=== PATIENT | male | born 1945 ===

== ENCOUNTER 2020-03-31 09:14 | Outpatient (REF) | payer MEDICARE, BC, SELFPAY ==
[2020-03-31 09:50] LABS: MANUAL DIFF FLAG NO
[2020-03-31 09:52] LABS: Basophils Absolute Auto 0.1 X10*3/uL (0.0-0.2); Basophils Percent Auto 0.9 % (0-2); Eosinophils Absolute Auto 0.2 X10*3/uL (0.0-0.4); Eosinophils Percent Auto 2.6 % (0-4); Hemoglobin 15.4 g/dl (14.0-18.0); Imm Gran Abs Auto 0.02 X10*3/uL (0.00-0.03); Imm Gran Pct Auto 0.3 % (0.0-0.4); Lymphocytes Absolute Auto 1.2 X10*3/uL (1.2-4.9); Lymphocytes Percent Auto 18.9 % (20-40); Mean Corpuscular HGB Conc 34.2 g/dl (31.0-36.0); Mean Corpuscular Hemoglobin 30.9 pg (27.0-33.0); Mean Corpuscular Volume 90.2 fL (80-98); Mean Platelet Volume 9.3 fL (9.4-12.4); Monocytes Absolute Auto 0.6 X10*3/uL (0.1-1.2); Monocytes Percent Auto 8.5 % (2-11); Neutrophils Absolute Auto 4.4 X10*3/uL (2.0-8.3); Neutrophils Percent Auto 68.8 % (45-73); Platelet Count 164 X10*3/uL (160-400); Red Blood Count 4.99 X10*6/uL (4.60-5.80); Red Cell Distribution Width 12.5 % (11.0-16.0); White Blood Count 6.5 X10*3/uL (4.8-10.8)
[2020-03-31 10:40] LABS: Alanine Aminotransferase 25 U/L (0-40); Albumin Level 4.5 g/dL (3.5-5.0); Alkaline Phosphatase 38 U/L (39-117); Anion Gap 15 (12-20); Aspartate Amino Transferase 24 U/L (5-37); Bilirubin Total 0.8 mg/dL (0.0-1.0); Blood Urea Nitrogen 19 mg/dL (9-16); Calcium 9.2 mg/dL (8.4-10.2); Carbon Dioxide 27 mmol/L (22-29); Chloride 104 mmol/L (96-108); Cholesterol 181 mg/dL; Estimated Glomerular Filt Rate > 60; Glucose Fasting 101 mg/dL (60-99); HDL Cholesterol 58 mg/dL; LDL Cholesterol Calculated 108 mg/dl; Potassium 4.5 mmol/l (3.3-5.1); Sodium 141 mmol/L (135-145); Total Protein 6.7 g/dL (6.5-8.0); Triglycerides 77 mg/dL
== END 2020-03-31 09:15 | disposition home or self-care (01) ==
LOC: HO.LAB 09:14
PROVIDERS: PCP Internal Medicine Medical Oncology; Visit Provider Internal Medicine Medical Oncology
DX: E78.5 Hyperlipidemia, unspecified (principal)
CPT/HCPCS: 36415; 80053; 80061; 85025

== ENCOUNTER 2020-06-25 09:18 | Outpatient (REF) | payer MEDICARE, BC, SELFPAY ==
[2020-06-25 10:17] LABS: MANUAL DIFF FLAG NO
[2020-06-25 10:29] LABS: Basophils Percent Auto 0.7 % (0-2); Eosinophils Absolute Auto 0.2 X10*3/uL (0.0-0.4); Eosinophils Percent Auto 2.6 % (0-4); Hematocrit 42.4 % (42-52); Hemoglobin 14.6 g/dl (14.0-18.0); Imm Gran Abs Auto 0.01 X10*3/uL (0.00-0.03); Imm Gran Pct Auto 0.2 % (0.0-0.4); Lymphocytes Absolute Auto 1.1 X10*3/uL (1.2-4.9); Lymphocytes Percent Auto 18.1 % (20-40); Mean Corpuscular HGB Conc 34.4 g/dl (31.0-36.0); Mean Corpuscular Hemoglobin 30.7 pg (27.0-33.0); Mean Corpuscular Volume 89.1 fL (80-98); Mean Platelet Volume 9.6 fL (9.4-12.4); Monocytes Absolute Auto 0.6 X10*3/uL (0.1-1.2); Monocytes Percent Auto 10.4 % (2-11); Platelet Count 148 X10*3/uL (160-400); Red Blood Count 4.76 X10*6/uL (4.60-5.80); Red Cell Distribution Width 12.6 % (11.0-16.0); White Blood Count 5.9 X10*3/uL (4.8-10.8)
[2020-06-25 11:00] LABS: Alanine Aminotransferase 27 U/L (0-40); Albumin Level 4.5 g/dL (3.5-5.0); Alkaline Phosphatase 36 U/L (39-117); Anion Gap 12 (12-20); Aspartate Amino Transferase 23 U/L (5-37); Bilirubin Total 1.1 mg/dL (0.0-1.0); Blood Urea Nitrogen 20 mg/dL (9-16); Calcium 9.1 mg/dL (8.4-10.2); Carbon Dioxide 27 mmol/L (22-29); Chloride 104 mmol/L (96-108); Cholesterol 161 mg/dL; Estimated Glomerular Filt Rate > 60; Glucose Random 106 mg/dL (60-115); HDL Cholesterol 52 mg/dL; LDL Cholesterol Calculated 95 mg/dl; Potassium 4.3 mmol/L (3.3-5.1); Sodium 139 mmol/L (135-145); Total Protein 6.4 g/dL (6.5-8.0); Triglycerides 70 mg/dL
[2020-06-25 11:12] LABS: Prostate Specific Antigen 1.17 ng/mL (<0.05-4.0)
== END 2020-06-25 09:19 | disposition home or self-care (01) ==
LOC: HO.LAB 09:18
PROVIDERS: PCP Internal Medicine Medical Oncology; Visit Provider Internal Medicine Medical Oncology
DX: Z12.5 Encounter for screening for malignant neoplasm of prostate (principal); E78.5 Hyperlipidemia, unspecified; I10 Essential (primary) hypertension
CPT/HCPCS: 36415; 80053; 80061; 84153; 85025

== ENCOUNTER 2020-10-13 08:27 | Outpatient (REF) | payer MEDICARE, BC, SELFPAY ==
[2020-10-13 09:44] LABS: MANUAL DIFF FLAG NO
[2020-10-13 09:56] LABS: Basophils Absolute Auto 0.1 X10*3/uL (0.0-0.2); Basophils Percent Auto 0.7 % (0-2); Eosinophils Absolute Auto 0.2 X10*3/uL (0.0-0.4); Eosinophils Percent Auto 3.1 % (0-4); Hematocrit 43.9 % (42-52); Imm Gran Abs Auto 0.02 X10*3/uL (0.00-0.03); Imm Gran Pct Auto 0.3 % (0.0-0.4); Lymphocytes Absolute Auto 1.1 X10*3/uL (1.2-4.9); Lymphocytes Percent Auto 16.5 % (20-40); Mean Corpuscular HGB Conc 34.2 g/dl (31.0-36.0); Mean Corpuscular Hemoglobin 30.7 pg (27.0-33.0); Mean Corpuscular Volume 89.8 fL (80-98); Mean Platelet Volume 9.4 fL (9.4-12.4); Monocytes Absolute Auto 0.7 X10*3/uL (0.1-1.2); Monocytes Percent Auto 9.6 % (2-11); Neutrophils Absolute Auto 4.8 X10*3/uL (2.0-8.3); Neutrophils Percent Auto 69.8 % (45-73); Platelet Count 161 X10*3/uL (160-400); Red Blood Count 4.89 X10*6/uL (4.60-5.80); Red Cell Distribution Width 13.1 % (11.0-16.0); White Blood Count 6.9 X10*3/uL (4.8-10.8)
[2020-10-13 10:20] LABS: Alanine Aminotransferase 23 U/L (0-40); Albumin Level 4.3 g/dL (3.5-5.0); Alkaline Phosphatase 35 U/L (39-117); Anion Gap 13 (12-20); Aspartate Amino Transferase 20 U/L (5-37); Bilirubin Total 0.5 mg/dL (0.0-1.0); Blood Urea Nitrogen 15 mg/dL (9-16); Calcium 9.4 mg/dL (8.4-10.2); Carbon Dioxide 27 mmol/L (22-29); Chloride 104 mmol/L (96-108); Cholesterol 170 mg/dL; Estimated Glomerular Filt Rate > 60; Glucose Random 95 mg/dL (60-115); HDL Cholesterol 53 mg/dL; LDL Cholesterol Calculated 95 mg/dl; Potassium 4.4 mmol/L (3.3-5.1); Sodium 140 mmol/L (135-145); Total Protein 6.4 g/dL (6.5-8.0); Triglycerides 112 mg/dL
[2020-10-13 10:25] LABS: Prostate Specific Antigen 1.37 ng/mL (<0.05-4.0)
[2020-10-13 10:39] LABS: Folate > 20.0 ng/mL (> or = 4.0); Vitamin B12 410 pg/mL (200-900)
== END 2020-10-13 08:28 | disposition home or self-care (01) ==
LOC: HO.LAB 08:27
PROVIDERS: PCP Internal Medicine Medical Oncology; Visit Provider Internal Medicine Medical Oncology
DX: Z12.5 Encounter for screening for malignant neoplasm of prostate (principal); I10 Essential (primary) hypertension; E78.2 Mixed hyperlipidemia; D53.9 Nutritional anemia, unspecified; N40.0 Benign prostatic hyperplasia without lower urinary tract symptoms
CPT/HCPCS: 36415; 80053; 80061; 82607; 82746; 84153; 85025

== ENCOUNTER 2021-02-16 10:01 | Outpatient (REF) | payer MEDICARE, BC, SELFPAY ==
[2021-02-16 10:16] LABS: MANUAL DIFF FLAG NO
[2021-02-16 10:36] LABS: Basophils Percent Auto 0.6 % (0-2); Eosinophils Absolute Auto 0.2 X10*3/uL (0.0-0.4); Eosinophils Percent Auto 2.7 % (0-4); Hematocrit 44.8 % (42.0-52.0); Hemoglobin 15.5 g/dl (14.0-18.0); Imm Gran Abs Auto 0.02 X10*3/uL (0.00-0.03); Imm Gran Pct Auto 0.3 % (0.0-0.4); Lymphocytes Absolute Auto 1.2 X10*3/uL (1.2-4.9); Lymphocytes Percent Auto 17.1 % (20-40); Mean Corpuscular HGB Conc 34.6 g/dl (31.0-36.0); Mean Corpuscular Hemoglobin 30.6 pg (27.0-33.0); Mean Corpuscular Volume 88.5 fL (80.0-98.0); Mean Platelet Volume 8.9 fL (9.4-12.4); Monocytes Absolute Auto 0.6 X10*3/uL (0.1-1.2); Monocytes Percent Auto 8.7 % (2-11); Neutrophils Absolute Auto 4.9 x10*3/uL (2.0-8.3); Neutrophils Percent Auto 70.6 % (45-73); Platelet Count 165 X10*3/uL (160-400); Red Blood Count 5.06 X10*6/uL (4.60-5.80); Red Cell Distribution Width 12.7 % (11.0-16.0); White Blood Count 6.9 X10*3/uL (4.8-10.8)
[2021-02-16 11:01] LABS: Alanine Aminotransferase 34 U/L (0-40); Albumin Level 4.6 g/dL (3.5-5.0); Alkaline Phosphatase 34 U/L (39-117); Anion Gap 13 (12-20); Aspartate Amino Transferase 26 U/L (5-37); Bilirubin Total 0.8 mg/dL (0.0-1.0); Blood Urea Nitrogen 18 mg/dL (9-16); Calcium 9.5 mg/dL (8.4-10.2); Carbon Dioxide 26 mmol/L (22-29); Chloride 105 mmol/L (96-108); Cholesterol 185 mg/dL; Estimated Glomerular Filt Rate > 60; Glucose Fasting 106 mg/dL (60-99); HDL Cholesterol 59 mg/dL; LDL Cholesterol Calculated 103 mg/dl; Potassium 4.4 mmol/L (3.3-5.1); Sodium 140 mmol/L (135-145); Total Protein 6.9 g/dL (6.5-8.0); Triglycerides 118 mg/dL
== END 2021-02-16 10:02 | disposition home or self-care (01) ==
LOC: HO.LAB 10:01
PROVIDERS: PCP Internal Medicine Medical Oncology; Visit Provider Internal Medicine Medical Oncology
DX: Z00.00 Encounter for general adult medical examination without abnormal findings (principal); E78.2 Mixed hyperlipidemia; N40.0 Benign prostatic hyperplasia without lower urinary tract symptoms
CPT/HCPCS: 36415; 80053; 80061; 85025

== ENCOUNTER 2021-05-18 09:32 | Outpatient (REF) | payer MEDICARE, BC, SELFPAY ==
[2021-05-18 10:04] LABS: MANUAL DIFF FLAG NO
[2021-05-18 10:46] LABS: Basophils Percent Auto 0.7 % (0-2); Eosinophils Absolute Auto 0.2 X10*3/uL (0.0-0.4); Eosinophils Percent Auto 3.2 % (0-4); Hematocrit 43.3 % (42.0-52.0); Hemoglobin 14.8 g/dl (14.0-18.0); Imm Gran Abs Auto 0.02 X10*3/uL (0.00-0.03); Imm Gran Pct Auto 0.4 % (0.0-0.4); Lymphocytes Absolute Auto 1.1 X10*3/uL (1.2-4.9); Lymphocytes Percent Auto 18.9 % (20-40); Mean Corpuscular HGB Conc 34.2 g/dl (31.0-36.0); Mean Corpuscular Hemoglobin 30.8 pg (27.0-33.0); Mean Platelet Volume 9.3 fL (9.4-12.4); Monocytes Absolute Auto 0.6 X10*3/uL (0.1-1.2); Monocytes Percent Auto 9.9 % (2-11); Neutrophils Absolute Auto 3.8 x10*3/uL (2.0-8.3); Neutrophils Percent Auto 66.9 % (45-73); Platelet Count 156 X10*3/uL (160-400); Red Blood Count 4.81 X10*6/uL (4.60-5.80); Red Cell Distribution Width 12.7 % (11.0-16.0); White Blood Count 5.7 X10*3/uL (4.8-10.8)
[2021-05-18 10:49] LABS: Alanine Aminotransferase 25 U/L (0-40); Albumin Level 4.3 g/dL (3.5-5.0); Alkaline Phosphatase 33 U/L (39-117); Anion Gap 13 (12-20); Aspartate Amino Transferase 21 U/L (5-37); Bilirubin Total 0.6 mg/dL (0.0-1.0); Blood Urea Nitrogen 18 mg/dL (9-16); Calcium 9.2 mg/dL (8.4-10.2); Carbon Dioxide 28 mmol/L (22-29); Chloride 106 mmol/L (96-108); Cholesterol 164 mg/dL; Estimated Glomerular Filt Rate > 60; Glucose Fasting 103 mg/dL (60-99); HDL Cholesterol 50 mg/dL; LDL Cholesterol Calculated 98 mg/dl; Potassium 4.7 mmol/L (3.3-5.1); Sodium 142 mmol/L (135-145); Total Protein 6.7 g/dL (6.5-8.0); Triglycerides 80 mg/dL
[2021-05-18 11:13] LABS: Prostate Specific Antigen 1.56 ng/mL (<0.05-4.0)
== END 2021-05-18 09:33 | disposition home or self-care (01) ==
LOC: HO.LAB 09:32
PROVIDERS: PCP Internal Medicine Medical Oncology; Visit Provider Internal Medicine Medical Oncology
DX: Z12.5 Encounter for screening for malignant neoplasm of prostate (principal); I10 Essential (primary) hypertension; E78.2 Mixed hyperlipidemia; N40.0 Benign prostatic hyperplasia without lower urinary tract symptoms
CPT/HCPCS: 36415; 80053; 80061; 84153; 85025

== ENCOUNTER 2021-09-14 08:06 | Outpatient (REF) | payer MEDICARE, BC, SELFPAY ==
[2021-09-14 08:41] LABS: MANUAL DIFF FLAG NO
[2021-09-14 09:05] LABS: Basophils Percent Auto 0.6 % (0-2); Eosinophils Absolute Auto 0.2 X10*3/uL (0.0-0.4); Eosinophils Percent Auto 2.8 % (0-4); Hematocrit 43.7 % (42.0-52.0); Imm Gran Abs Auto 0.04 X10*3/uL (0.00-0.03); Imm Gran Pct Auto 0.6 % (0.0-0.4); Lymphocytes Percent Auto 15.7 % (20-40); Mean Corpuscular HGB Conc 34.3 g/dl (31.0-36.0); Mean Corpuscular Hemoglobin 30.6 pg (27.0-33.0); Mean Corpuscular Volume 89.2 fL (80.0-98.0); Mean Platelet Volume 9.1 fL (9.4-12.4); Monocytes Absolute Auto 0.5 X10*3/uL (0.1-1.2); Monocytes Percent Auto 8.3 % (2-11); Neutrophils Absolute Auto 4.7 x10*3/uL (2.0-8.3); Platelet Count 149 X10*3/uL (160-400); Red Cell Distribution Width 13.1 % (11.0-16.0); White Blood Count 6.5 X10*3/uL (4.8-10.8)
[2021-09-14 09:47] LABS: Alanine Aminotransferase 22 U/L (0-40); Albumin Level 4.6 g/dL (3.5-5.0); Alkaline Phosphatase 40 U/L (39-117); Anion Gap 11 (12-20); Aspartate Amino Transferase 21 U/L (5-37); Bilirubin Total 0.9 mg/dL (0.0-1.0); Blood Urea Nitrogen 16 mg/dL (9-16); Calcium 9.1 mg/dL (8.4-10.2); Carbon Dioxide 28 mmol/L (22-29); Chloride 105 mmol/L (96-108); Cholesterol 165 mg/dL; Estimated Glomerular Filt Rate > 60; Glucose Random 96 mg/dL (60-115); HDL Cholesterol 54 mg/dL; LDL Cholesterol Calculated 95 mg/dl; Potassium 4.7 mmol/L (3.3-5.1); Sodium 139 mmol/L (135-145); Total Protein 6.8 g/dL (6.5-8.0); Triglycerides 80 mg/dL
[2021-09-14 09:57] LABS: Vitamin D 25-OH Total 35.2 ng/mL (>30)
== END 2021-09-14 08:07 | disposition home or self-care (01) ==
LOC: HO.LAB 08:06
PROVIDERS: PCP Internal Medicine Medical Oncology; Visit Provider Internal Medicine Medical Oncology
DX: E78.2 Mixed hyperlipidemia (principal); I10 Essential (primary) hypertension
CPT/HCPCS: 36415; 80053; 80061; 82306; 85025

== ENCOUNTER 2021-11-23 11:29 | Outpatient (REF) | payer MEDICARE, BC, SELFPAY ==
--- NOTE | ~2021-11-23 | XR_ITS ---
EXAMINATION: XR KNEE, LEFT CLINICAL INFORMATION: Left knee pain COMPARISON: None TECHNIQUE: Four views of the left knee. FINDINGS: Severe medial compartment and mild patellofemoral/lateral compartment osteoarthritis with a large joint effusion. No fracture. Diffuse vascular calcifications. XR/XR knee LT 4V IMPRESSION: Tricompartmental osteoarthritis, severe in the medial compartment, with a large joint effusion.
== END 2021-11-23 11:30 | disposition home or self-care (01) ==
LOC: HO.XRAY 11:29
PROVIDERS: PCP Internal Medicine Medical Oncology; Visit Provider Internal Medicine Medical Oncology
DX: M25.562 Pain in left knee (principal); R29.898 Other symptoms and signs involving the musculoskeletal system
CPT/HCPCS: 73564

== ENCOUNTER 2021-12-17 11:36 | Outpatient (REF) | payer MEDICARE, BC, SELFPAY ==
[2021-12-17 12:08] LABS: MANUAL DIFF FLAG NO
[2021-12-17 12:51] LABS: Basophils Percent Auto 0.6 % (0-2); Eosinophils Absolute Auto 0.1 X10*3/uL (0.0-0.4); Eosinophils Percent Auto 1.9 % (0-4); Hematocrit 43.4 % (42.0-52.0); Hemoglobin 14.8 g/dl (14.0-18.0); Imm Gran Abs Auto 0.02 X10*3/uL (0.00-0.03); Imm Gran Pct Auto 0.3 % (0.0-0.4); Lymphocytes Absolute Auto 0.9 X10*3/uL (1.2-4.9); Lymphocytes Percent Auto 14.1 % (20-40); Mean Corpuscular HGB Conc 34.1 g/dl (31.0-36.0); Mean Corpuscular Hemoglobin 30.3 pg (27.0-33.0); Mean Corpuscular Volume 88.9 fL (80.0-98.0); Mean Platelet Volume 9.2 fL (9.4-12.4); Monocytes Absolute Auto 0.5 X10*3/uL (0.1-1.2); Monocytes Percent Auto 8.3 % (2-11); Neutrophils Absolute Auto 4.7 x10*3/uL (2.0-8.3); Neutrophils Percent Auto 74.8 % (45-73); Platelet Count 164 X10*3/uL (160-400); Red Blood Count 4.88 X10*6/uL (4.60-5.80); White Blood Count 6.2 X10*3/uL (4.8-10.8)
[2021-12-17 13:39] LABS: Alanine Aminotransferase 26 U/L (0-40); Albumin Level 4.7 g/dL (3.5-5.0); Alkaline Phosphatase 39 U/L (39-117); Anion Gap 17 (12-20); Aspartate Amino Transferase 28 U/L (5-37); Bilirubin Total 0.7 mg/dL (0.0-1.0); Blood Urea Nitrogen 16 mg/dL (9-16); Calcium 9.6 mg/dL (8.4-10.2); Carbon Dioxide 26 mmol/L (22-29); Chloride 102 mmol/L (96-108); Cholesterol 172 mg/dL; Estimated Glomerular Filt Rate > 60; Glucose Fasting 101 mg/dL (60-99); HDL Cholesterol 57 mg/dL; LDL Cholesterol Calculated 100 mg/dl; Potassium 4.7 mmol/L (3.3-5.1); Sodium 140 mmol/L (135-145); Total Protein 6.9 g/dL (6.5-8.0); Triglycerides 77 mg/dL
== END 2021-12-17 11:37 | disposition home or self-care (01) ==
LOC: HO.LAB 11:36
PROVIDERS: PCP Internal Medicine Medical Oncology; Visit Provider Internal Medicine Medical Oncology
DX: I10 Essential (primary) hypertension (principal); N40.0 Benign prostatic hyperplasia without lower urinary tract symptoms; E78.2 Mixed hyperlipidemia; Z12.5 Encounter for screening for malignant neoplasm of prostate
CPT/HCPCS: 36415; 80053; 80061; 84153; 85025

== ENCOUNTER 2022-04-21 09:07 | Outpatient (REF) | payer MEDICARE, BC, SELFPAY ==
[2022-04-21 09:16] LABS: MANUAL DIFF FLAG NO
[2022-04-21 09:35] LABS: Basophils Absolute Auto 0.1 X10*3/uL (0.0-0.2); Eosinophils Absolute Auto 0.3 X10*3/uL (0.0-0.4); Eosinophils Percent Auto 4.3 % (0-4); Hematocrit 43.3 % (42.0-52.0); Imm Gran Abs Auto 0.03 X10*3/uL (0.00-0.03); Imm Gran Pct Auto 0.5 % (0.0-0.4); Lymphocytes Absolute Auto 1.2 X10*3/uL (1.2-4.9); Lymphocytes Percent Auto 18.7 % (20-40); Mean Corpuscular HGB Conc 34.6 g/dl (31.0-36.0); Mean Corpuscular Hemoglobin 30.6 pg (27.0-33.0); Mean Corpuscular Volume 88.4 fL (80.0-98.0); Mean Platelet Volume 9.1 fL (9.4-12.4); Monocytes Absolute Auto 0.7 X10*3/uL (0.1-1.2); Monocytes Percent Auto 11.5 % (2-11); Platelet Count 155 X10*3/uL (160-400); Red Cell Distribution Width 13.1 % (11.0-16.0); White Blood Count 6.3 X10*3/uL (4.8-10.8)
[2022-04-21 10:10] LABS: Alanine Aminotransferase 29 U/L (0-40); Albumin Level 4.3 g/dL (3.5-5.0); Alkaline Phosphatase 36 U/L (39-117); Anion Gap 11 (12-20); Aspartate Amino Transferase 24 U/L (5-37); Blood Urea Nitrogen 16 mg/dL (9-16); Calcium 9.3 mg/dL (8.4-10.2); Carbon Dioxide 28 mmol/L (22-29); Chloride 107 mmol/L (96-108); Cholesterol 164 mg/dL; Estimated Glomerular Filt Rate > 60; Glucose Fasting 100 mg/dL (60-99); HDL Cholesterol 48 mg/dL; LDL Cholesterol Calculated 98 mg/dl; Potassium 4.7 mmol/L (3.3-5.1); Sodium 141 mmol/L (135-145); Total Protein 6.3 g/dL (6.5-8.0); Triglycerides 91 mg/dL
[2022-04-21 10:25] LABS: Prostate Specific Antigen 1.79 ng/mL (<0.05-4.0)
== END 2022-04-21 09:08 | disposition home or self-care (01) ==
LOC: HO.LAB 09:07
PROVIDERS: PCP Internal Medicine Medical Oncology; Visit Provider Internal Medicine Medical Oncology
DX: Z12.5 Encounter for screening for malignant neoplasm of prostate (principal); I10 Essential (primary) hypertension; E78.2 Mixed hyperlipidemia; N40.0 Benign prostatic hyperplasia without lower urinary tract symptoms
CPT/HCPCS: 36415; 80053; 80061; 84153; 85025

== ENCOUNTER 2022-08-25 08:57 | Outpatient (REF) | payer MEDICARE, BC, SELFPAY ==
[2022-08-25 09:11] LABS: MANUAL DIFF FLAG NO
[2022-08-25 10:11] LABS: Basophils Percent Auto 0.7 % (0-2); Eosinophils Absolute Auto 0.2 X10*3/uL (0.0-0.4); Eosinophils Percent Auto 2.6 % (0-4); Hematocrit 44.6 % (42.0-52.0); Hemoglobin 15.1 g/dl (14.0-18.0); Imm Gran Abs Auto 0.02 X10*3/uL (0.00-0.03); Imm Gran Pct Auto 0.3 % (0.0-0.4); Lymphocytes Percent Auto 16.3 % (20-40); Mean Corpuscular HGB Conc 33.9 g/dl (31.0-36.0); Mean Corpuscular Hemoglobin 30.6 pg (27.0-33.0); Mean Corpuscular Volume 90.3 fL (80.0-98.0); Mean Platelet Volume 9.6 fL (9.4-12.4); Monocytes Absolute Auto 0.6 X10*3/uL (0.1-1.2); Neutrophils Absolute Auto 4.3 x10*3/uL (2.0-8.3); Neutrophils Percent Auto 70.1 % (45-73); Platelet Count 171 X10*3/uL (160-400); Red Blood Count 4.94 X10*6/uL (4.60-5.80); Red Cell Distribution Width 12.9 % (11.0-16.0); White Blood Count 6.1 X10*3/uL (4.8-10.8)
[2022-08-25 11:39] LABS: Alanine Aminotransferase 22 U/L (0-40); Albumin Level 4.5 g/dL (3.5-5.0); Alkaline Phosphatase 38 U/L (39-117); Anion Gap 13 (12-20); Aspartate Amino Transferase 23 U/L (5-37); Bilirubin Total 1.1 mg/dL (0.0-1.0); Blood Urea Nitrogen 16 mg/dL (9-16); Calcium 9.4 mg/dL (8.4-10.2); Carbon Dioxide 27 mmol/L (22-29); Chloride 104 mmol/L (96-108); Cholesterol 159 mg/dL; Estimated Glomerular Filt Rate > 60; Glucose Fasting 96 mg/dL (60-99); HDL Cholesterol 50 mg/dL; LDL Cholesterol Calculated 96 mg/dl; Potassium 4.4 mmol/L (3.3-5.1); Sodium 140 mmol/L (135-145); Total Protein 6.9 g/dL (6.5-8.0); Triglycerides 69 mg/dL
== END 2022-08-25 08:58 | disposition home or self-care (01) ==
LOC: HO.LAB 08:57
PROVIDERS: PCP Internal Medicine Medical Oncology; Visit Provider Internal Medicine Medical Oncology
DX: I10 Essential (primary) hypertension (principal); E78.2 Mixed hyperlipidemia; N40.0 Benign prostatic hyperplasia without lower urinary tract symptoms; L98.9 Disorder of the skin and subcutaneous tissue, unspecified
CPT/HCPCS: 36415; 80053; 80061; 85025

== ENCOUNTER 2022-12-29 09:15 | Outpatient (REF) | payer MEDICARE, BC, SELFPAY ==
[2022-12-29 09:44] LABS: MANUAL DIFF FLAG NO
[2022-12-29 10:16] LABS: Basophils Percent Auto 0.6 % (0-2); Eosinophils Absolute Auto 0.2 X10*3/uL (0.0-0.4); Eosinophils Percent Auto 2.6 % (0-4); Hematocrit 42.1 % (42.0-52.0); Hemoglobin 14.2 g/dl (14.0-18.0); Imm Gran Abs Auto 0.04 X10*3/uL (0.00-0.03); Imm Gran Pct Auto 0.6 % (0.0-0.4); Lymphocytes Percent Auto 16.3 % (20-40); Mean Corpuscular HGB Conc 33.7 g/dl (31.0-36.0); Mean Corpuscular Hemoglobin 30.6 pg (27.0-33.0); Mean Corpuscular Volume 90.7 fL (80.0-98.0); Mean Platelet Volume 9.1 fL (9.4-12.4); Monocytes Absolute Auto 0.6 X10*3/uL (0.1-1.2); Monocytes Percent Auto 9.2 % (2-11); Neutrophils Absolute Auto 4.4 x10*3/uL (2.0-8.3); Neutrophils Percent Auto 70.7 % (45-73); Platelet Count 167 X10*3/uL (160-400); Red Blood Count 4.64 X10*6/uL (4.60-5.80); Red Cell Distribution Width 13.1 % (11.0-16.0); White Blood Count 6.2 X10*3/uL (4.8-10.8)
[2022-12-29 10:42] LABS: Alanine Aminotransferase 24 U/L (0-40); Albumin Level 4.4 g/dL (3.5-5.0); Alkaline Phosphatase 37 U/L (39-117); Anion Gap 12 (12-20); Aspartate Amino Transferase 23 U/L (5-37); Bilirubin Total 0.8 mg/dL (0.0-1.0); Blood Urea Nitrogen 14 mg/dL (9-16); Calcium 9.3 mg/dL (8.4-10.2); Carbon Dioxide 29 mmol/L (22-29); Chloride 105 mmol/L (96-108); Cholesterol 152 mg/dL (<200); Estimated Glomerular Filt Rate > 60; Glucose Fasting 96 mg/dL (60-99); HDL Cholesterol 54 mg/dL (>40); LDL Cholesterol Calculated 84 mg/dL (<100); Potassium 4.2 mmol/L (3.3-5.1); Sodium 142 mmol/L (135-145); Total Protein 6.7 g/dL (6.5-8.0); Triglycerides 71 mg/dL (<150)
[2022-12-29 11:01] LABS: Prostate Specific Antigen 2.12 ng/mL (<0.05-4.0)
== END 2022-12-29 09:16 | disposition home or self-care (01) ==
LOC: HO.LAB 09:15
PROVIDERS: PCP Internal Medicine Medical Oncology; Visit Provider Internal Medicine Medical Oncology
DX: I10 Essential (primary) hypertension (principal); E78.2 Mixed hyperlipidemia; N40.0 Benign prostatic hyperplasia without lower urinary tract symptoms; Z12.5 Encounter for screening for malignant neoplasm of prostate
CPT/HCPCS: 36415; 80053; 80061; 84153; 85025

== ENCOUNTER 2023-04-27 09:18 | Outpatient (REF) | payer MEDICARE, BC, SELFPAY ==
[2023-04-27 09:41] LABS: MANUAL DIFF FLAG NO
[2023-04-27 09:53] LABS: Basophils Percent Auto 0.7 % (0-2); Eosinophils Absolute Auto 0.2 X10*3/uL (0.0-0.4); Hematocrit 42.4 % (42.0-52.0); Hemoglobin 14.9 g/dl (14.0-18.0); Imm Gran Abs Auto 0.02 X10*3/uL (0.00-0.03); Imm Gran Pct Auto 0.3 % (0.0-0.4); Lymphocytes Percent Auto 16.8 % (20-40); Mean Corpuscular HGB Conc 35.1 g/dl (31.0-36.0); Mean Corpuscular Hemoglobin 30.8 pg (27.0-33.0); Mean Corpuscular Volume 87.6 fL (80.0-98.0); Mean Platelet Volume 9.2 fL (9.4-12.4); Monocytes Absolute Auto 0.6 X10*3/uL (0.1-1.2); Monocytes Percent Auto 10.4 % (2-11); Neutrophils Percent Auto 67.8 % (45-73); Platelet Count 155 X10*3/uL (160-400); Red Blood Count 4.84 X10*6/uL (4.60-5.80); Red Cell Distribution Width 12.9 % (11.0-16.0); White Blood Count 5.9 X10*3/uL (4.8-10.8)
[2023-04-27 10:24] LABS: Alanine Aminotransferase 21 U/L (0-40); Albumin Level 4.4 g/dL (3.5-5.0); Alkaline Phosphatase 41 U/L (39-117); Anion Gap 11 (12-20); Aspartate Amino Transferase 20 U/L (5-37); Bilirubin Total 0.6 mg/dL (0.0-1.0); Blood Urea Nitrogen 17 mg/dL (9-16); Calcium 9.3 mg/dL (8.4-10.2); Carbon Dioxide 29 mmol/L (22-29); Chloride 104 mmol/L (96-108); Cholesterol 184 mg/dL (<200); Estimated Glomerular Filt Rate > 60; Glucose Fasting 105 mg/dL (60-99); HDL Cholesterol 50 mg/dL (>40); LDL Cholesterol Calculated 119 mg/dL (<100); Potassium 4.6 mmol/L (3.3-5.1); Sodium 139 mmol/L (135-145); Total Protein 6.7 g/dL (6.5-8.0); Triglycerides 77 mg/dL (<150)
== END 2023-04-27 09:19 | disposition home or self-care (01) ==
LOC: HO.LAB 09:18
PROVIDERS: PCP Internal Medicine Medical Oncology; Visit Provider Internal Medicine Medical Oncology
DX: I10 Essential (primary) hypertension (principal); E78.2 Mixed hyperlipidemia
CPT/HCPCS: 36415; 80053; 80061; 85025

== ENCOUNTER 2023-07-06 09:55 | Outpatient (AMB) | payer MEDICARE, BC, SELFPAY ==
--- NOTE | 2023-07-06 10:01 | MHC.OFFVIS ---
Vital Signs 07/06/23 10:07 Height 5 ft 8 in Weight 150 lb BMI 22.8 Handedness Right Intake Visit Reasons: N/P- Hx of Right hand ganglion cyst Intake Note: Wayne 77 yr old right hand dominant male presents today for his right hand ganglion cyst. States on 03/16/22 he had surgery to have his right wrist ganglion cyst removed and is now growing back. Patient expresses having no pain at the moment. He states that he wants to get rid of the lump that is on the dorsal aspect of his hand. Allergies No Known Allergies Allergy (Verified 07/06/23 10:05) HPI HPI N/P- Hx of Right hand ganglion cyst: Details: Wayne is a 77 year old right hand dominant man who presents to discuss a right hand mass. He says he has a hx of a right wrist dorsal ganglion excision by Dr. Elder, DOS: 03/25/19. He says this mass is returning and he wants to discuss surgery to have this removed. He says he has a hx of arthritis, and occasional tingling in all his fingers daily, bilaterally. He denies any numbness at night. [facility] Social History (Updated 07/06/23 @ 10:07 by Steve Bowen) Alcohol intake: never Patient Tobacco Use Status: Never used Tobacco Current occupational status: retired Current occupation: right hand dominant Review of Systems Const All systems reviewed & are unremarkable except as noted in HPI and below Physical Exam Vital Signs: BMI result Body Mass Index 22.8 Const General: cooperative, healthy appearing and no acute distress Orientation/consciousness: patient oriented x3 HEENT Head: Yes normocephalic and Yes atraumatic Eyes EOM: EOMs intact bilaterally Resp Effort & Inspection: normal respiratory effort and able to speak in complete sentences Cardio Jugular venous distension: no JVD Skin General skin exam: turgor normal Rashes: no rashes Neuro General: patient oriented x3 Extrem Other: Evaluation of Right Upper Extremity: The patient is alert, oriented, and in no acute distress Neuro: Median, Ulnar, Radial nerves motor and sensory intact and sensation is normal to the tips of all digits Vascular: Cap refill brisk ROM: He can make a fist and extend all his digits No locking or catching Good wrist ROM without pain Skin: No lacerations or abrasions. General: No Ecchymosis. No Erythema or evidence of infection. There is a mass on the dorsal aspect of his wrist, over the DRUJ. This measures ~1.5cm in diameter, his rather spherical, appears to be fluid filled and is slightly mobile. It is nontender, and he has painless wrist range of motion. The skin incision overtop is well-healed Psych Appearance: grossly normal Affect: normal affect Attitude: cooperative Assessment & Plan Assessment & Plan (1) Ganglion cyst of dorsum of right wrist: Code(s): M67.431 - Ganglion, right wrist Category: Medical (2) Bilateral hand numbness: Code(s): R20.0 - Anesthesia of skin Category: Medical Plan Assessment & Plan: 1. Right dorsal wrist ganglion, recurrence S/P excision DOS: 03/16/[address] Elder at an outside clinic I educated him about this condition I discussed operative and non-operative treatment options The patient would like to proceed with surgery The risks and benefits of operative treatment were discussed with the patient and the patient wishes to proceed with surgery. These risks include, but are not limited to risk of damage to blood vessels, nerves, tendons, infection, recurrence, incomplete relief of preoperative symptoms, persistent pain, possible need for further surgery and the risks associated with regional blocks and anesthesia. The plan is to take the patient to the operating room sometime in the next few weeks for the following procedures: 1. Right dorsal wrist ganglion repeat excision, under general All of the preoperative paperwork including the consent was reviewed today. All the patient's questions were answered. The patient understands that they will be contacted by our doorperson or luggage porter soon to schedule this procedure He denies Diabetes, blood thinners, asthma, heart, lung, kidney issues 2. Bilateral hand numbness Symptoms intermittent & occasional Primarily tingling in all digits during the day He denies any nighttime symptoms I educated him about the signs of carpal & cubital tunnel syndrome If his symptoms increase in frequency or severity he will follow up to discuss a NCS. Scribed for Melyssa Hoffman MD by Stuart Huizar, biomedical scientist, on 07/06/23 at 10:35 AM, EST. Coding Level of Care Code New Pt Level 4 (98456) Diagnoses Ganglion cyst of dorsum of right wrist M67.431 Bilateral hand numbness R20.0
[2023-07-06 10:07] VITALS: BMI 22.8
== END 2023-07-06 10:41 | disposition home or self-care (01) ==
PROVIDERS: PCP Internal Medicine Medical Oncology; Visit Provider Orthopaedic Surgery
DX: M67.431 Ganglion, right wrist (principal); R20.0 Anesthesia of skin
CPT/HCPCS: 99204

== ENCOUNTER → 2023-07-06 09:55 | Outpatient (BNVA) | payer MEDICARE, BC, SELFPAY | PROVIDERS: PCP Internal Medicine Medical Oncology; Visit Provider Orthopaedic Surgery | DX: M67.431 Ganglion, right wrist (principal); R20.0 Anesthesia of skin | CPT/HCPCS: 99202 ==

== ENCOUNTER 2023-07-20 14:21 | Outpatient (REF) | payer MEDICARE, BC, SELFPAY ==
--- NOTE | 2023-07-20 14:24 | EMG_ITS ---
Chief complaint: He saw Dr. Hoffman for a ganglion cyst on right dorsal wrist. Hand numbness was also mentioned, though he tells me today that it does not bother him. Reason for referral: Evaluate for Carpal Tunnel Syndrome Referred by: Dr. Hoffman Procedure done: Bilateral upper extremities NCS Precautions and/or limitations: None The limb temperature was monitored continuously and remained between 32-36 degrees C during the performance of the NCS. Nerve Conduction Studies Anti Sensory Summary Table ?Stim Site NR Onset (ms) Norm Onset (ms) Peak (ms) Norm Peak (ms) O-P Amp (?V) Norm O-P Amp Site1 Site2 Delta-0 (ms) Dist (cm) Rodger (m/s) Norm Rodger (m/s) Left Median Anti Sensory (2nd Digit) Wrist NR <3.6 >10 Wrist 2nd Digit 14.0 Right Median Anti Sensory (2nd Digit) Wrist NR <3.6 >10 Wrist 2nd Digit 14.0 Left Ulnar Anti Sensory (5th Digit) Wrist ? 2.7 3.5 <3.7 10.9 >15.0 Wrist 5th Digit 2.7 14.0 52 Right Ulnar Anti Sensory (5th Digit) Wrist ? 2.7 3.4 <3.7 12.3 >15.0 Wrist 5th Digit 2.7 14.0 52 Motor Summary Table ?Stim Site NR Onset (ms) Norm Onset (ms) O-P Amp (mV) Norm O-P Amp iAmp (mV) Amp (1st) (%) Site1 Site2 Delta-0 (ms) Dist (cm) Rodger (m/s) Norm Rodger (m/s) Left Median Motor (Abd Poll Brev) Wrist ? 9.6 <3.9 1.0 >4.5 1.1 100.0 Elbow Wrist 6.3 21.0 33 >45 Elbow ? 15.9 0.7 0.9 70.0 Right Median Motor (Abd Poll Brev) Wrist ? 5.7 <3.9 8.5 >4.5 10.1 100.0 Elbow Wrist 4.8 20.0 42 >45 Elbow ? 10.5 5.5 6.6 64.7 Left Ulnar Motor (Abd Dig Minimi) Wrist ? 2.5 <3.0 5.4 >5 7.0 100.0 B Elbow Wrist 3.8 21.0 55 >45 B Elbow ? 6.3 4.5 6.0 83.3 A Elbow B Elbow 1.9 10.0 53 >45 A Elbow ? 8.2 4.2 5.6 77.8 Right Ulnar Motor (Abd Dig Minimi) Wrist ? 3.0 <3.0 5.9 >5 7.4 100.0 B Elbow Wrist 3.8 19.0 50 >45 B Elbow ? 6.8 6.0 7.8 101.7 A Elbow B Elbow 1.1 10.0 91 >45 A Elbow ? 7.9 6.2 8.0 105.1 EMG ?Side Muscle Nerve Root Ins Act Fibs Psw Amp Dur Poly Recrt Int Pat Comment Right 1stDorInt Ulnar C8-T1 Nml Nml Nml Nml Nml 0 Nml Complete Right FlexCarRad Median C6-7 Nml Nml Nml Nml Nml 0 Nml Complete Right Biceps Musculocut C5-6 Nml Nml Nml Nml Nml 0 Nml Complete Right Triceps Radial C6-7-8 Nml Nml Nml Nml Nml 0 Nml Complete Right Deltoid Axillary C5-6 Nml Nml Nml Nml Nml 0 Nml Complete Left 1stDorInt Ulnar C8-T1 Nml Nml Nml Nml Nml 0 Nml Complete Left FlexCarRad Median C6-7 Nml Nml Nml Nml Nml 0 Nml Complete Left Biceps Musculocut C5-6 Nml Nml Nml Nml Nml 0 Nml Complete Left Triceps Radial C6-7-8 Nml Nml Nml Nml Nml 0 Nml Complete Left Deltoid Axillary C5-6 Nml Nml Nml Nml Nml 0 Nml Complete FINDINGS: Right median motor nerve showed prolonged distal latency, normal amplitude and slow conduction velocity. Left median motor nerve showed prolonged distal latency, very small amplitudes and slow conduction velocity. Bilateral median sensory nerves showed absent response. All other nerves tested were within normal. IMPRESSION: 1. This is an abnormal nerve conduction study. 2. There is electrodiagnostic evidence for bilateral moderate-severe median neuropathy at the wrist, consistent with carpal tunnel syndrome. 3. There is no electrodiagnostic evidence for ulnar neuropathy. Thank you for your kind referral. Cary Bettencourt MD, [place] Board Certified, [place] Board of Physical Medicine and Rehabilitation (ABPMR) Board Certified, [place] Board of Electrodiagnostic Medicine (ABEM) CODIN MTDMary Beth
== END 2023-07-20 14:22 | disposition home or self-care (01) ==
LOC: HO.NEURO 14:21
PROVIDERS: PCP Internal Medicine Medical Oncology; Visit Provider Orthopaedic Surgery
DX: R20.0 Anesthesia of skin (principal); R20.2 Paresthesia of skin
CPT/HCPCS: 95910

== ENCOUNTER → 2023-07-20 14:24 | Outpatient (BNV) | payer MEDICARE, BC, SELFPAY | PROVIDERS: PCP Internal Medicine Medical Oncology; Visit Provider Physical Medicine & Rehabilitation | DX: R20.0 Anesthesia of skin (principal); R20.2 Paresthesia of skin | CPT/HCPCS: 95886; 95910 ==

== ENCOUNTER 2023-08-03 15:09 | Outpatient (AMB) | payer MEDICARE, BC, SELFPAY ==
--- NOTE | 2023-08-03 15:21 | MHC.OFFVIS ---
Intake Visit Reasons: Preop RT DWG exc 08/08/23 AR Intake Note: right hand dominant Allergies No Known Allergies Allergy (Verified 08/03/23 15:24) HPI HPI Preop RT DWG exc 08/08/23 AR: Details: Wayne is a 77 year old right hand dominant man who returns to discuss his right dorsal wrist ganglion He says he has a hx of a right wrist dorsal ganglion excision by Dr. Elder, DOS: 03/25/19. He says this mass has returned, but has shrunk since last visit. The patient still wants to proceed with excision. He denies any changes in his symptoms or medical history. He says he has a hx of arthritis, and intermittent tingling in his thumb, index, and middle fingers daily, bilaterally. He denies any numbness at night. Patient had EMG and NCS performed on 07/20/23, and the patient reports that the study showed moderate to severe carpal tunnel syndrome. The patient reports that he has no interest in treatment at this time. [facility] Social History Alcohol intake: never Patient Tobacco Use Status: Never used Tobacco Current occupational status: retired Current occupation: right hand dominant Review of Systems Const All systems reviewed & are unremarkable except as noted in HPI and below Physical Exam Const Other: Patient is alert, oriented, cooperative, and in no acute distress General: no acute distress and alert Orientation/consciousness: patient oriented x3 HEENT Head: Yes normocephalic and Yes atraumatic Resp Effort & Inspection: normal respiratory effort and able to speak in complete sentences Cardio Peripheral pulses: Peripheral pulses 2+ throughout Neuro General: patient oriented x3 Cognition (Neuro): normal cognition Extrem Other: Evaluation of Right Upper Extremity: The patient is alert, oriented, and in no acute distress Vascular: Cap refill brisk ROM: He can make a fist and extend all his digits No locking or catching Good wrist ROM without pain Skin: No lacerations or abrasions. General: No Ecchymosis. No Erythema or evidence of infection. R Hand Exam: There is a mass on the dorsal aspect of his wrist, over the DRUJ. This measures approximately 1 cm in diameter, his rather spherical, appears to be fluid filled and is slightly mobile. It is consistent with a dorsal wrist ganglion It is nontender, and he has painless wrist range of motion. The skin incision overtop is well-healed Nerve Conduction Study: IMPRESSION: 1. This is an abnormal nerve conduction study. 2. There is electrodiagnostic evidence for bilateral moderate-severe median neuropathy at the wrist, consistent with carpal tunnel syndrome. 3. There is no electrodiagnostic evidence for ulnar neuropathy. Cary Bettencourt MD, [place] 07/20/23 Psych Appearance: grossly normal Mental Status: mental status grossly normal Affect: normal affect Attitude: cooperative Assessment & Plan Assessment & Plan (1) Ganglion cyst of dorsum of right wrist: Code(s): M67.431 - Ganglion, right wrist Category: Medical (2) Bilateral hand numbness: Code(s): R20.0 - Anesthesia of skin Category: Medical (3) Carpal tunnel syndrome, bilateral: Code(s): G56.03 - Carpal tunnel syndrome, bilateral upper limbs Category: Medical Plan Assessment & Plan: 1. Right dorsal wrist ganglion, recurrence S/P excision DOS: 03/16/[address] Elder I educated him about this condition I discussed operative and non-operative treatment options The patient would like to proceed with surgery The risks and benefits of operative treatment were discussed with the patient and the patient wishes to proceed with surgery. These risks include, but are not limited to risk of damage to blood vessels, nerves, tendons, infection, recurrence, incomplete relief of preoperative symptoms, persistent pain, possible need for further surgery and the risks associated with regional blocks and anesthesia. The plan is to take the patient to the operating room sometime on 08/08/23 for the following procedures: 1. Right REPEAT dorsal wrist ganglion excision, under general All of the preoperative paperwork including the consent was reviewed today. All the patient's questions were answered. He denies Diabetes, blood thinners, asthma, heart, lung, kidney issues 2. Right carpal tunnel syndrome, moderate-severe 3. Left carpal tunnel syndrome, moderate-severe Symptoms intermittent & occasional Primarily tingling in all digits during the day He denies any nighttime symptoms I educated him about carpal tunnel syndrome and the risks of delaying treatment He expressed understanding but says he is not interested in discussing surgery at this time We can try and discuss this again at a later visit. Scribed for Melyssa Hoffman MD by Stuart Huizar, medical services coordinator, on 08/03/23 at 3:45 PM, EST. Coding Level of Care Code Est Pt Level 4 (51188) Diagnoses Ganglion cyst of dorsum of right wrist M67.431 Bilateral hand numbness R20.0 Carpal tunnel syndrome, bilateral G56.03 Time Spent (min) 25
== END 2023-08-03 15:47 | disposition home or self-care (01) ==
PROVIDERS: PCP Internal Medicine Medical Oncology; Visit Provider Orthopaedic Surgery
DX: M67.431 Ganglion, right wrist (principal); R20.0 Anesthesia of skin; G56.03 Carpal tunnel syndrome, bilateral upper limbs
CPT/HCPCS: 99024

== ENCOUNTER → 2023-08-03 15:09 | Outpatient (BNVA) | payer MEDICARE, BC, SELFPAY | PROVIDERS: PCP Internal Medicine Medical Oncology; Visit Provider Orthopaedic Surgery | DX: M67.431 Ganglion, right wrist (principal); R20.0 Anesthesia of skin; G56.03 Carpal tunnel syndrome, bilateral upper limbs | CPT/HCPCS: 99212 ==

== ENCOUNTER 2023-08-08 08:25 | Day surgery (SDC) | payer MEDICARE, BC, SELFPAY ==
--- NOTE | 2023-08-04 12:26 | P.CONAN_ITS ---
Documented by User: Gabrielle Chase NP 08/04/23 12:26 HPI - Anesthesia Eval Consult details Narrative: 77yo M for Rigth Excision of Dorsal Wrsit Ganglion [facility] Active Problems Active Problems: All Active Problems Carpal tunnel syndrome, bilateral (Acute) Ganglion cyst of dorsum of right wrist (Acute) Bilateral hand numbness (Acute) Past Medical History Medical History HLD (hyperlipidemia) HTN (hypertension) Social History Social History Alcohol intake: never Patient Tobacco Use Status: Never used Tobacco Use of substances other than those prescribed or required for medical reasons: No Are you DNR?: No Advance Directives: No Advance Directives Information Provided: Yes Current occupational status: retired Current occupation: right hand dominant Meds Allergies Allergy/AdvReac Type Severity Reaction Status Date / Time No Known Allergies Allergy Verified 08/08/23 08:47 Home Medications ?Medication ?Instructions ?Recorded ?Confirmed ?Last Taken ?Type betamethasone dipropionate 0.05 % appl topical 07/06/23 Unknown History topical cream lisinopril 20 mg tablet 20 mg PO DAILY 07/06/23 08/08/23 08/08/23 History simvastatin 20 mg tablet 20 mg PO QPM 07/06/23 08/08/23 08/07/23 History Assessment and Plan Assessment Anesthesia Assessment: Chart Reviewed Documented by User: Sarabjit Cedeno MD 08/08/23 09:24 [facility] Past Medical History Medical History HLD (hyperlipidemia) HTN (hypertension) Family History Family history of problems with anesthesia: No Surgical History History of Problems with Anesthesia: No Social History Social History Alcohol intake: never Patient Tobacco Use Status: Never used Tobacco Use of substances other than those prescribed or required for medical reasons: No Are you DNR?: No Advance Directives: No Advance Directives Information Provided: Yes Current occupational status: retired Current occupation: right hand dominant Meds Allergies Allergy/AdvReac Type Severity Reaction Status Date / Time No Known Allergies Allergy Verified 08/08/23 08:47 Home Medications ?Medication ?Instructions ?Recorded ?Confirmed ?Last Taken ?Type betamethasone dipropionate 0.05 % appl topical 07/06/23 Unknown History topical cream lisinopril 20 mg tablet 20 mg PO DAILY 07/06/23 08/08/23 08/08/23 History simvastatin 20 mg tablet 20 mg PO QPM 07/06/23 08/08/23 08/07/23 History Exam Airway Mallampati Class: I TM Dist: >3cm Neck ROM: Full Denture: Upper and Lower Loose/Missing/Broken Teeth: No Heart: rrr Lungs: cta Assessment and Plan Assessment Anesthesia Assessment: Anesthesia Plan Discussed Final Anesthetic Review Family History of Problems with Anesthesia: No History of Problems with Anesthesia: No NPO: Yes ASA Class: II Final Preanesthetic Review: No Changes in Pt Med Stat, Meds/Allgs Chart Reviewed, Consent Obtained/Reviewed and Anes Risks/Benef Reviewed Patient Risk: Intermediate Procedure Risk: Intermediate Anesthetic Plan Anesthetic Plan: GA Disposition: Standard PACU
--- NOTE | 2023-08-08 08:00 | P.OP_ITS ---
Operative Note Operative Note Date of Service: 08/08/23 Narrative: Operative Note Narrative: Preop diagnosis: 1. Right recurrent dorsal wrist ganglion Postop diagnosis: Same Procedure: 1. Right repeat dorsal wrist ganglion excision Surgeon: Melyssa Hoffman MD Anesthesia: General Findings: 1. Right dorsal wrist ganglion approximately 1.2 cm diameter, filled with clear viscous fluid consistent with a ganglion Tourniquet time: 7 minutes EBL: 5.0 ml Specimen: dorsal wrist ganglion Drains: None Complications: None Disposition: Brought to the recovery room in stable condition Plan: Follow-up in 10-14 days for wound check, suture removal and to check path ology Indications: The patient is 77 years old with a right dorsal wrist ganglion that has been unresponsive to nonoperative management. The risks and benefits of operative treatment, including but not limited to risk of damage to blood vessels, nerves, tendons, infection, recurrence, persistent pain or numbness, or need for further surgery were discussed with the patient and they wished to pr oceed with surgery. Procedure: Once consent was obtained patient was brought back to the operating suite and placed in the operating table in a supine position. Perioperative antibiotics and anesthesia was administered by the anesthesia team. A tourniquet was applied to the proximal aspect of the right upper extremity and the limb was prepped and draped in a standard surgical fashion. The limb was elevated exsanguinated with Esmarch bandage and the tourniquet inflated to 250 mm of mercury for a total tourniquet time of 7 minutes. A 2 cm dorsal longitudinal incision was made in line with the previous incision over the dorsal aspect of the right wrist, centered over the dorsal wrist ganglion. Ganglion was located over the dorsal ulnar aspect of the right wrist distal to the DRUJ. The incision was made with a #15 blade through the skin to the subcutaneous tissues. Tenotomy scissors were then used to carefully dissect down through the subcutaneous layer to the dorsal wrist ganglion. It measured approximately 1.5 cm in diameter and was filled with clear viscous fluid consistent with a ganglion. It was carefully mobilized from the surrounding soft tissues using tenotomy and iris scissors. It's stalk passed through some of the extensor retinaculum just distal to the DRUJ. The Bovie was used to cauterize the stalk to reduce risk of recurrence., and the ganglion was cut free and removed to the back table to be sent for histopathologic review. No further masses were identified. At this point the tourniquet was deflated and hemostasis obtained with a brief period of local pressure. Wound was irrigated with normal saline. The skin edges were reapproximated with some 5-0 Prolene suture. The wound was infiltrated with some 1% lidocaine with epinephrine for postop pain control and a sterile dressing was applied. The patient appears to have tolerated the procedure well and with no complications. All digits were well vascularized conclusion of the case.
[2023-08-08 08:37] VITALS: BMI 22.8
[2023-08-08 09:05] VITALS: BP 145/85; PULSE 83; RESP 16; TEMP 36.2; O2SAT 97
--- NOTE | 2023-08-08 10:12 | MHC.SHP ---
Pre-Procedural Eval Section A - 24 Hr Update-Section A only Date of Service: 08/08/23 The patient is an INPATIENT: No Changes since office visit: No Cold of Flu in the past 2 weeks, No New Medical Problems, No Changes in Medication and No Patient answered all questions The patient has been examined within 24 hours of the surgical procedure. The History & Physical has been completed within 30 days and I have reviewed it.: Yes Section B - Complete if H&P > 30 days Chief Complaint: Ganglion, right wrist Allergies: Allergies Allergy/AdvReac Type Severity Reaction Status Date / Time No Known Allergies Allergy Verified 08/08/23 08:47 Plan I have reviewed the history and physical and performed a pertinent physical examination on my patient. No changes have occurred unless specified. Time Spent With Patient Time: Total time managing care of this patient today ____ minutes.
[2023-08-08 11:13] VITALS: BP 127/60; PULSE 86; RESP 18; TEMP 36.6; O2SAT 100
[2023-08-08 11:15] VITALS: BP 119/58; PULSE 84; RESP 16; O2SAT 97
[2023-08-08 11:20] VITALS: BP 121/62; PULSE 86; RESP 16; O2SAT 97
[2023-08-08 11:25] VITALS: BP 128/68; PULSE 74; RESP 16; O2SAT 97
[2023-08-08 11:40] VITALS: BP 127/65; PULSE 84; RESP 16; TEMP 36.4; O2SAT 98
== END 2023-08-08 13:30 | disposition home or self-care (01) ==
PROVIDERS: PCP Internal Medicine Medical Oncology; Visit Provider Orthopaedic Surgery
PROC: (CPT 25112; principal; 2023-08-08 10:10)
DX: M67.431 Ganglion, right wrist (principal)
CPT/HCPCS: 25112; 88304; J0690; J1100; J2371; J2405; J2704; J3010

== ENCOUNTER → 2023-08-08 08:25 | Outpatient (BNV) | payer MEDICARE, BC, SELFPAY | PROVIDERS: PCP Internal Medicine Medical Oncology; Visit Provider Orthopaedic Surgery | DX: M67.431 Ganglion, right wrist (principal) | CPT/HCPCS: 25112 ==

== ENCOUNTER 2023-08-24 12:26 | Outpatient (AMB) | payer MEDICARE, BC, SELFPAY ==
--- NOTE | 2023-08-24 12:27 | A.OFFVIS_ITS ---
Vital Signs 08/24/23 12:29 Height 5 ft 8 in Weight 150 lb BMI 22.8 Handedness Right Intake Visit Reasons: PO RT DWG exc 08/08/23 AR Intake Note: Wayne 77 year old male presents today for his post operative visit for his right DWG exc 08/08/23 AR. Patient states he is doing well and has not experienced pain. He is disappointed as he sees the bump still there. Sutures removed and steri strips applied. Allergies No Known Allergies Allergy (Verified 08/24/23 12:30) HPI HPI PO RT DWG exc 08/08/23 AR: Details: Wayne is a 77 year old right hand dominant man who returns S/p right dorsal wrist ganglion repeat excision, DOS: 08/08/23. He says he is doing well and denies any pain. He says he feels there is still a mass at his surgery site and is concerned if the ganglion may already be returning or if this is some swelling. He says he has a hx of arthritis, and intermittent tingling in his thumb, index, and middle fingers daily, bilaterally. He denies any numbness at night. Patient had EMG and NCS performed on 07/20/23, and the patient reports that the study showed moderate to severe carpal tunnel syndrome. The patient reports that he has no interest in treatment at this time. [facility] Medical History Ganglion cyst of dorsum of right wrist HLD (hyperlipidemia) HTN (hypertension) Social History Alcohol intake: never Patient Tobacco Use Status: Never used Tobacco Current occupational status: retired Current occupation: right hand dominant Review of Systems Const All systems reviewed & are unremarkable except as noted in HPI and below Physical Exam Vital Signs: BMI result Body Mass Index 22.8 Const General: no acute distress and alert Orientation/consciousness: patient oriented x3 Neuro General: patient oriented x3 Extrem Other: The patient was alert oriented and in no acute distress The incision is healing well with no erythema drainage or evidence of infection. Sutures removed and Steri-Strips applied He can make a fist and extend all his digits He has some mild localized swelling about the incision site, but no evidence of recurrence He can make a tight fist with good strength and no pain. He can keep his fingers extended against resistance with no pain. Smooth wrist range of motion today without discomfort. Sensation is intact Cap refill is brisk Pathology report 08/08/23 Diagnosis Soft tissue, right wrist, excision: Ganglion cyst Nerve Conduction Study: IMPRESSION: 1. This is an abnormal nerve conduction study. 2. There is electrodiagnostic evidence for bilateral moderate-severe median neuropathy at the wrist, consistent with carpal tunnel syndrome. 3. There is no electrodiagnostic evidence for ulnar neuropathy. Cary Bettencourt MD, [place] 07/20/23 Psych Appearance: grossly normal Affect: normal affect Attitude: cooperative Assessment & Plan Assessment & Plan (1) Ganglion cyst of dorsum of right wrist: Code(s): M67.431 - Ganglion, right wrist Category: Medical (2) Carpal tunnel syndrome, bilateral: Code(s): G56.03 - Carpal tunnel syndrome, bilateral upper limbs Category: Medical Plan Assessment & Plan: 1. Right dorsal wrist ganglion, S/P repeat excision DOS: 03/16/[address] Elder DOS: 08/08/23 The patient appears to be doing well post-operatively I educated him about the post-operative course I discussed activity modifications, he is to lift nothing heavier than a cellphone for the next two weeks. He can work on lower precious exercises & cardio exercises at the gym for the next 2 weeks. He will perform gentle ROM exercises at home He should avoid any underwater activities for the next 5 days He should gently massage about the incision site to reduce the risk of hypersensitivity He can follow up prn 2. Right carpal tunnel syndrome, moderate-severe 3. Left carpal tunnel syndrome, moderate-severe Symptoms intermittent & occasional Primarily tingling in all digits during the day He denies any nighttime symptoms I educated him about carpal tunnel syndrome and the risks of delaying treatment He expressed understanding but says he is not interested in discussing surgery at this time We can try and discuss this again at a later visit. Scribed for Melyssa Hoffman MD by Stuart Huizar, emergency medical dispatcher, on 08/24/23 at 12:45 PM, EST. Coding Level of Care Code Global (94508) Diagnoses Ganglion cyst of dorsum of right wrist M67.431 Carpal tunnel syndrome, bilateral G56.03
[2023-08-24 12:29] VITALS: BMI 22.8
== END 2023-08-24 12:50 | disposition home or self-care (01) ==
PROVIDERS: PCP Internal Medicine Medical Oncology; Visit Provider Orthopaedic Surgery
DX: M67.431 Ganglion, right wrist (principal); G56.03 Carpal tunnel syndrome, bilateral upper limbs
CPT/HCPCS: 99024

== ENCOUNTER → 2023-08-24 12:26 | Outpatient (BNVA) | payer MEDICARE, BC, SELFPAY | PROVIDERS: PCP Internal Medicine Medical Oncology; Visit Provider Orthopaedic Surgery | DX: Z47.89 Encounter for other orthopedic aftercare (principal); G56.03 Carpal tunnel syndrome, bilateral upper limbs | CPT/HCPCS: 99212 ==

== ENCOUNTER 2023-08-25 09:03 | Outpatient (REF) | payer MEDICARE, BC, SELFPAY ==
[2023-08-25 09:28] LABS: MANUAL DIFF FLAG NO
[2023-08-25 09:54] LABS: Basophils Absolute Auto 0.1 X10*3/uL (0.0-0.2); Basophils Percent Auto 0.8 % (0-2); Eosinophils Absolute Auto 0.3 X10*3/uL (0.0-0.4); Eosinophils Percent Auto 2.9 % (0-4); Hematocrit 43.1 % (42.0-52.0); Hemoglobin 15.1 g/dl (14.0-18.0); Imm Gran Abs Auto 0.04 X10*3/uL (0.00-0.03); Imm Gran Pct Auto 0.5 % (0.0-0.4); Mean Corpuscular Hemoglobin 31.3 pg (27.0-33.0); Mean Corpuscular Volume 89.4 fL (80.0-98.0); Mean Platelet Volume 9.3 fL (9.4-12.4); Monocytes Absolute Auto 0.7 X10*3/uL (0.1-1.2); Monocytes Percent Auto 8.3 % (2-11); Neutrophils Absolute Auto 6.6 x10*3/uL (2.0-8.3); Neutrophils Percent Auto 76.5 % (45-73); Platelet Count 142 X10*3/uL (160-400); Red Blood Count 4.82 X10*6/uL (4.60-5.80); White Blood Count 8.6 X10*3/uL (4.8-10.8)
[2023-08-25 10:20] LABS: Alanine Aminotransferase 25 U/L (0-40); Albumin Level 4.3 g/dL (3.5-5.0); Alkaline Phosphatase 41 U/L (39-117); Anion Gap 13 (12-20); Aspartate Amino Transferase 23 U/L (5-37); Bilirubin Total 0.7 mg/dL (0.0-1.0); Blood Urea Nitrogen 14 mg/dL (9-16); Calcium 9.2 mg/dL (8.4-10.2); Carbon Dioxide 28 mmol/L (22-29); Chloride 104 mmol/L (96-108); Cholesterol 160 mg/dL (<200); Estimated Glomerular Filt Rate > 60; Glucose Fasting 102 mg/dL (60-99); HDL Cholesterol 59 mg/dL (>40); LDL Cholesterol Calculated 91 mg/dL (<100); Potassium 4.8 mmol/L (3.3-5.1); Sodium 140 mmol/L (135-145); Total Protein 6.6 g/dL (6.5-8.0); Triglycerides 52 mg/dL (<150)
== END 2023-08-25 09:04 | disposition home or self-care (01) ==
LOC: HO.LAB 09:03
PROVIDERS: PCP Internal Medicine Medical Oncology; Visit Provider Internal Medicine Medical Oncology
DX: I10 Essential (primary) hypertension (principal); E78.2 Mixed hyperlipidemia
CPT/HCPCS: 36415; 80053; 80061; 85025

== ENCOUNTER 2023-11-03 09:14 | Outpatient (REF) | payer MEDICARE, BC, SELFPAY ==
[2023-11-03 09:49] LABS: MANUAL DIFF FLAG NO
[2023-11-03 10:11] LABS: Basophils Percent Auto 0.6 % (0-2); Eosinophils Absolute Auto 0.2 X10*3/uL (0.0-0.4); Eosinophils Percent Auto 3.2 % (0-4); Hematocrit 42.4 % (42.0-52.0); Hemoglobin 14.7 g/dl (14.0-18.0); Imm Gran Abs Auto 0.03 X10*3/uL (0.00-0.03); Imm Gran Pct Auto 0.5 % (0.0-0.4); Lymphocytes Absolute Auto 1.1 X10*3/uL (1.2-4.9); Mean Corpuscular HGB Conc 34.7 g/dl (31.0-36.0); Mean Corpuscular Hemoglobin 30.7 pg (27.0-33.0); Mean Corpuscular Volume 88.5 fL (80.0-98.0); Mean Platelet Volume 9.2 fL (9.4-12.4); Monocytes Absolute Auto 0.6 X10*3/uL (0.1-1.2); Monocytes Percent Auto 9.7 % (2-11); Neutrophils Absolute Auto 4.6 x10*3/uL (2.0-8.3); Platelet Count 158 X10*3/uL (160-400); Red Blood Count 4.79 X10*6/uL (4.60-5.80); Red Cell Distribution Width 12.8 % (11.0-16.0); White Blood Count 6.6 X10*3/uL (4.8-10.8)
[2023-11-03 10:50] LABS: Alanine Aminotransferase 17 U/L (0-40); Albumin Level 4.4 g/dL (3.5-5.0); Alkaline Phosphatase 46 U/L (39-117); Anion Gap 14 (12-20); Aspartate Amino Transferase 18 U/L (5-37); Bilirubin Total 0.8 mg/dL (0.0-1.0); Blood Urea Nitrogen 17 mg/dL (9-16); Calcium 9.7 mg/dL (8.4-10.2); Carbon Dioxide 25 mmol/L (22-29); Chloride 105 mmol/L (96-108); Cholesterol 179 mg/dL (<200); Estimated Glomerular Filt Rate > 60; Glucose Fasting 104 mg/dL (60-99); HDL Cholesterol 51 mg/dL (>40); LDL Cholesterol Calculated 111 mg/dL (<100); Potassium 4.4 mmol/L (3.3-5.1); Sodium 140 mmol/L (135-145); Total Protein 6.8 g/dL (6.5-8.0); Triglycerides 86 mg/dL (<150)
[2023-11-03 11:06] LABS: Prostate Specific Antigen 2.41 ng/mL (<0.05-4.0)
== END 2023-11-03 09:15 | disposition home or self-care (01) ==
LOC: HO.LAB 09:14
PROVIDERS: PCP Internal Medicine Medical Oncology; Visit Provider Internal Medicine Medical Oncology
DX: I10 Essential (primary) hypertension (principal); E78.2 Mixed hyperlipidemia; N40.0 Benign prostatic hyperplasia without lower urinary tract symptoms; Z12.5 Encounter for screening for malignant neoplasm of prostate
CPT/HCPCS: 36415; 80053; 80061; 84153; 85025

== ENCOUNTER 2024-03-05 09:07 | Outpatient (REF) | payer MEDICARE, BC, SELFPAY ==
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
--- OUTSIDE RECORDS SUMMARY | 2024-03-05 09:10 | XMS_ITS ---
Author Organization Shimon Cerna III, MD Address [address] [place] [address] Care Team Providers Care Flat Locker Name Role Phone Shimon Cerna Primary Care Provider [phone] REASON FOR VISIT Pre op clearance form faxed Encounters Encounter Location Date Provider Diagnosis Shimon Cerna III, MD [address] [place] [address] [place] [address] 05/05/2023 Shimon Cerna Plan Of Treatment Next Appt Details Provider Name:Shimon Cerna, 03/14/2024 02:30:00 PM, [address] [place] [address] [place], [phone], Provider Name:Shimon Cerna, 05/08/2024 02:30:00 PM, [address] [place] [address] [place], [address], Progress Notes * Wayne GARCÍADOB: [birth year] (77 yo M)Acc No.[id number]:05/05/2023 Patient:?DiChristopherWayne :1945???Age:77 Y???Sex:Male Address:[address] [place], [address] * true * Date:? Generated for Printi ng/Faxing/eTransmitting on:?03/05/2024 09:10 AM EST
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
[2024-03-05 09:26] LABS: MANUAL DIFF FLAG NO
[2024-03-05 09:34] LABS: Basophils Absolute Auto 0.1 X10*3/uL (0.0-0.2); Basophils Percent Auto 0.5 % (0-2); Eosinophils Absolute Auto 0.3 X10*3/uL (0.0-0.4); Eosinophils Percent Auto 2.3 % (0-4); Hematocrit 41.6 % (42.0-52.0); Hemoglobin 14.6 g/dl (14.0-18.0); Imm Gran Abs Auto 0.07 X10*3/uL (0.00-0.03); Imm Gran Pct Auto 0.6 % (0.0-0.4); Lymphocytes Absolute Auto 0.9 X10*3/uL (1.2-4.9); Lymphocytes Percent Auto 8.3 % (20-40); Mean Corpuscular HGB Conc 35.1 g/dl (31.0-36.0); Mean Corpuscular Hemoglobin 31.1 pg (27.0-33.0); Mean Corpuscular Volume 88.5 fL (80.0-98.0); Mean Platelet Volume 8.8 fL (9.4-12.4); Monocytes Absolute Auto 0.9 X10*3/uL (0.1-1.2); Monocytes Percent Auto 7.8 % (2-11); Neutrophils Absolute Auto 8.9 x10*3/uL (2.0-8.3); Neutrophils Percent Auto 80.5 % (45-73); Platelet Count 175 X10*3/uL (160-400); White Blood Count 11.1 X10*3/uL (4.8-10.8)
[2024-03-05 10:03] LABS: Alanine Aminotransferase 23 U/L (0-40); Albumin Level 4.3 g/dL (3.5-5.0); Alkaline Phosphatase 46 U/L (39-117); Anion Gap 11 (12-20); Aspartate Amino Transferase 20 U/L (5-37); Bilirubin Total 0.7 mg/dL (0.0-1.0); Blood Urea Nitrogen 16 mg/dL (9-16); Calcium 8.9 mg/dL (8.4-10.2); Carbon Dioxide 27 mmol/L (22-29); Chloride 105 mmol/L (96-108); Cholesterol 174 mg/dL (<200); Estimated Glomerular Filt Rate > 60; Glucose Fasting 103 mg/dL (60-99); HDL Cholesterol 56 mg/dL (>40); LDL Cholesterol Calculated 101 mg/dL (<100); Potassium 4.4 mmol/L (3.3-5.1); Sodium 139 mmol/L (135-145); Total Protein 6.6 g/dL (6.5-8.0); Triglycerides 88 mg/dL (<150)
[2024-03-05 10:19] LABS: Prostate Specific Antigen 2.47 ng/mL (<0.05-4.0)
== END 2024-03-05 09:08 | disposition home or self-care (01) ==
LOC: HO.LAB 09:07
PROVIDERS: PCP Internal Medicine Medical Oncology; Visit Provider Internal Medicine Medical Oncology
DX: I10 Essential (primary) hypertension (principal); E78.2 Mixed hyperlipidemia; N40.0 Benign prostatic hyperplasia without lower urinary tract symptoms; Z12.5 Encounter for screening for malignant neoplasm of prostate
CPT/HCPCS: 36415; 80053; 80061; 84153; 85025

== ENCOUNTER 2024-08-01 09:02 | Outpatient (REF) | payer MEDICARE, BC, SELFPAY ==
[2024-08-01 09:18] LABS: MANUAL DIFF FLAG NO
--- OUTSIDE RECORDS SUMMARY | 2024-08-01 09:34 | XMS_ITS ---
Author Organization Shimon Cerna III, MD Address [address] [place] [address] Care Team Providers Care Brine Tank Operator Name Role Phone Shimon Cerna Primary [...] Provider Speciality Internal M edicine Referred Provider [facility], [facility] Referred Provider Specialty [facility] General Notes Idalia Coto 11/28 03:14:20 [...] Date Provider Diagnosis Shimon Cerna III, MD [address] [place] [address] [address] [place], [place] [phone] 11/09/2023 Shimon Cerna Essential hypertensi on I10 [...] He was referred back to urgent care [facility]. Plan Of Treatment Medication Medication [...] Treat Left Knee Pain, [facility] Next Appt Details Follow Up: 4 Months, Reason: OV Provider Name:Shimon Cerna, 08/08/2024 02:30:00 PM, [address] [place] [address] [address], [place], [phone], Progress Notes * Wayne GARCÍADOB: [birth year] (78 yo M)Acc No.[id number]:11/09/2023 Progress Notes Patient:?Wayne García Provider:?Shimon Cerna MD :1945???Age:78 Y???Sex:Male Ignacio e:11/09/2023 Address:[address] [place] [address], [id number] Subjective: * Chief Complaints: * ???Benign prostatic [...] referred to the urgent walk-ins clinic at [facility]. He has been there before [...] Tobacco Non-User?Ex-cigarette smoker ???He was born and [place], [place]. He is a former smoker. He [...] 50 (Ref Range: >40 mg/dL) * Lab:[facility] [place]. Rade l Fast * Order Date 11/03/2023 [...] He was referred back to urgent care [facility].? Plan: * Treatment: 2.?Mixed hyperlipidemia?LAB: [...] TWICE DAILY NEEDED, External.? Referral To:[facility], [facility]??Orthopedic Surgery ?Reason:Consult and Treat Left Knee Pain * Procedure Codes:? * Preventive Medicine:? ??Counseling:?Smoking/Tobacco Use?Patient counseled on the dangers of tobacco use and urged to quit.?11/09/2023 * Follow Up:?4 Months (Reason: OV) * Images: * Sign off status: Completed true * Provider:?Shimon Cerna MD Date:?06/2023 Generated for Freya mg/Faxing/eTransmitting on:?08/01/2024 09:34 AM EDT History and Physical Notes * HPI (History of Present Illness) Category Sub-Category Detail Notes COVID-19 Screening Questions Have you had any new onset fever, chills, cough, congestion, sore throat, shortness of breath, muscle aches?: No Have you been exposed to the virus withi n the last 10 days?: No Have you travelled internationally in [facility] last 10 days?: No Have you [...] Provider Not heidi 11/09/2023 Shimon Cerna [facility] Consult and Treat Left Knee Pain
[2024-08-01 09:39] LABS: Basophils Absolute Auto 0.1 X10*3/uL (0.0-0.2); Eosinophils Absolute Auto 0.3 X10*3/uL (0.0-0.4); Hematocrit 38.6 % (42.0-52.0); Hemoglobin 13.1 g/dl (14.0-18.0); Imm Gran Abs Auto 0.03 X10*3/uL (0.00-0.03); Imm Gran Pct Auto 0.5 % (0.0-0.4); Lymphocytes Percent Auto 16.7 % (20-40); Mean Corpuscular HGB Conc 33.9 g/dl (31.0-36.0); Mean Corpuscular Volume 88.3 fL (80.0-98.0); Mean Platelet Volume 8.7 fL (9.4-12.4); Monocytes Absolute Auto 0.6 X10*3/uL (0.1-1.2); Neutrophils Absolute Auto 4.1 x10*3/uL (2.0-8.3); Neutrophils Percent Auto 66.8 % (45-73); Platelet Count 193 X10*3/uL (160-400); Red Blood Count 4.37 X10*6/uL (4.60-5.80); Red Cell Distribution Width 13.8 % (11.0-16.0); White Blood Count 6.2 X10*3/uL (4.8-10.8)
[2024-08-01 10:27] LABS: Alanine Aminotransferase 22 U/L (0-40); Albumin Level 4.5 g/dL (3.5-5.0); Alkaline Phosphatase 47 U/L (39-117); Anion Gap 9 (12-20); Aspartate Amino Transferase 25 U/L (5-37); Bilirubin Total 0.6 mg/dL (0.0-1.0); Blood Urea Nitrogen 18 mg/dL (9-16); Calcium 9.4 mg/dL (8.4-10.2); Carbon Dioxide 29 mmol/L (22-29); Chloride 105 mmol/L (96-108); Cholesterol 172 mg/dL (<200); Estimated Glomerular Filt Rate > 60; Glucose Fasting 97 mg/dL (60-99); HDL Cholesterol 52 mg/dL (>40); LDL Cholesterol Calculated 104 mg/dL (<100); Potassium 4.4 mmol/L (3.3-5.1); Sodium 139 mmol/L (135-145); Total Protein 6.8 g/dL (6.5-8.0); Triglycerides 80 mg/dL (<150)
[2024-08-01 10:37] LABS: Prostate Specific Antigen 3.68 ng/mL (<0.05-4.0)
== END 2024-08-01 09:03 | disposition home or self-care (01) ==
LOC: HO.LAB 09:02
PROVIDERS: PCP Internal Medicine Medical Oncology; Visit Provider Internal Medicine Medical Oncology
DX: I10 Essential (primary) hypertension (principal); Z12.5 Encounter for screening for malignant neoplasm of prostate; E78.2 Mixed hyperlipidemia; N40.0 Benign prostatic hyperplasia without lower urinary tract symptoms
CPT/HCPCS: 36415; 80053; 80061; 84153; 85025

== ENCOUNTER 2024-11-07 13:54 | Outpatient (REF) | payer MEDICARE, BC, SELFPAY ==
--- OUTSIDE RECORDS SUMMARY | 2023-08-31 10:00 | XMS_ITS ---
Author Organization Shimon Cerna III, MD Address [address] [place] [address] Care Team Providers Care Slotter Operator Name Role Phone Shimon Cerna Primary Care Provider [phone] Allergies Allergen (clinical drug ingredient) Drug/Non Drug [...] 08/31/2023 Encounters Encounter Location Date Provider Diagnosis Shimno Cerna III, MD [address] [place] [address] [address] [place], [place] [address] 08/31/2023 Shimon Cerna Essential hypertensi on I10 [...] 20 MG TAKE 1 TABLET BY TRAVIS EVERY DAY Terbinafine HCl 1 % APPLY TOPICALLY TO T HE AFFECTED AREA THREE TIMES DAILY FOR 21 DAYS External Pending Test Test Name Order Date PROFILE, FASTING (COMPREHENSIVE METABOLI C) 08/31/2023 PSA, TOTAL 08/31/2023 CBC WITH AUTO DIFF 08/31/2023 Lipid Panel 08/31/2023 Next Appt Details Follow Up: 3 Months, Reason: OV Provider Name:Shimon Cerna, 12/12/2024 02:00:00 PM, [address] [place] [address] [address], [place], [address], Provider Name:Shimon Cerna, 08/12/2025 02:30:00 PM, [address] [place] [address] [address], [place], [address], Progress Notes * Wayne GARCÍADOB: [birth year] (77 yo M)Acc No.[id number]:08/31/2023 Progress Notes Patient: Wayne Alcantar Provider: Louisa Cerna MD :1945 A ge:77 Y S ex:Male Date:08/31/2023 Address:[address] [place] [address], [facility] [id number] Subjective: * Chief Complaints: * H ypertensionArthritis [...] T obacco Use: T obacco Use/Smoking P atwilma is a f ormer smoker H ow long has it been since you last smoked??> 10 years A dditional Findings: Tobacco Non-User E x-cigarette smoker Lo giles was born and [place], [place]. He is a former smoker. He [...] 54 (Ref Range: >40 mg/dL) * Lab:[facility]. [facility] * Order Date 08/25/2023 04/27/2023 [...] MD Date: 0 08/31/2023 Generated for Freya mg/Lilliam/Marifer on: 0 11/07/2024 04:11 PM EDT History and Physical Notes * HPI (History of Present Illness) Category Sub-Category Detail Notes COVID-19 Screening Questions Have you had any new onset fever, chills, cough, congestion, sore throat, shortness of breath, muscle aches?: No Have you been exposed to the virus withi n the last 10 days?: No Have you travelled internationally in [facility] last 10 days?: No Have you [...]
--- OUTSIDE RECORDS SUMMARY | 2023-11-09 10:30 | XMS_ITS ---
Author Organization Shimon Cerna III, MD Address [address] [place] [address] Care Team Providers Care Quality Lead Name Role Phone Shimon Cerna Primary Care Provider Allergies Allergen (clinical drug [...] Provider Speciality Internal M edicine Referred Provider [place] ([place]) Referred Provider [facility] General Notes Idalia Coto 11/28 03:14:20 PM > Faxed referral and progress note Referral Priority Routine Referral Appointment Date 02/24/2024 REASON FOR VISIT Benign prostatic hypertrophy, Eczema, Hypertension, Osteoarthritis right knee, Hyperlipidemia, Vision loss left eye Medications Medication SIG (Take, Route, Frequency, Duration) Notes Start Date End Date Status PreserVision AREDS - as directed Orally Active Simvastatin 20 MG TAKE 1 TABLET BY TARVIS TH EVERY DAY IN THE EVENING Active [...] Date Provider Diagnosis Shimon Cerna III, MD [address] [place] [address] [address] [place], [place] [address] 11/09/2023 Shimon Cerna Essential hypertensi on I10 [...] He was referred back to urgent care [facility]. Plan Of Treatment Medication Medication [...] Treat Left Knee Pain, [facility] Next Appt Details Follow Up: 4 Months, Reason: OV Provider Name:Shimon Cerna, 12/12/2024 02:00:00 PM, [address] [place] [address] [address], [place], [address], Provider Name:Shimon Cerna, 08/12/2025 02:30:00 PM, [address] [place] [address] [address], [place], [phone], Progress Notes * Wayne GARCÍADOB: [birth year] (78 yo M)Acc No.[id number]:11/09/2023 Progress Notes Patient: Wayne Alcantar Provider: Louisa Cerna MD :1945 A ge:78 Y S ex:Male Date:11/09/2023 Address:[address] [place] [address], [id number] Subjective: * Chief Complaints: * B enign [...] referred to the urgent walk-ins clinic at [facility]. He has been there before [...] x-cigarette smoker Lo giles was born and [place], [place]. He is a former smoker. He [...] mg/dL) 50 (Ref Range: >40 mg/dL) * Lab:[facility] Jud[facility] Fast * Order Date 11/03/2023 08/25/2023 [...] He was referred back to urgent care [facility]. Plan: * Treatment: 2. M [...] NEEDED, External. ? Referral To:[facility] Reason:Consult and Treat Left Knee Pain * Procedure Codes: * Preventive Medicine: Counseling: S moking/Tobacco Use Patient counseled on the dangers of tobacco use and urged to quit. 0 11/09/2023 * Follow Up: 4 Months (Reason: OV) * Images: * Sign off status: Completed true * Provider: Louisa Cerna MD Date: 0 11/09/2023 Generated for Freya mg/Lilliam/eTransmitting on: 11/07/2024 04:11 PM EDT History and Physical [...] Provider Referred Provider Not heidi 11/09/2023 Shimon Cerna, To [facility] Consult and Treat Left Knee Pain
--- OUTSIDE RECORDS SUMMARY | 2024-03-14 10:30 | XMS_ITS ---
Author Organization Shimon Cerna III, MD Address [address] [place] [address] Care Team Providers Care Mold Sheet Cleaner Name Role Phone Shimon Cerna Primary Care Provider Allergies Allergen (clinical drug ingredient) Drug/Non Drug Allergy documented on EMR Reaction Allergy Type Onset Date Status No Known Drug Allergy Unknown Drug Allergy Active REASON FOR VISIT Osteoarthritis left knee, Asymptomatic left inguinal hernia, Planned left total knee Arthroplasty April 2024, Hypertension, Vision loss, left eye, Benign prostatic hypertrophy, Hyperlipidemia Medications Medication SIG (Take, Route, Frequency, Duration) Notes Start Date End Date Status Lisinopril 20 MG TAKE 1 TABLET BY TRAVIS TH EVERY DAY Active Terbinafine HCl 1 % APPLY TOPICALLY TO T HE AFFECTED AREA THREE TIMES DAILY FOR 21 DAYS External Active PreserVision AREDS - as directed Orally Active Betamethasone Dipropionate 0.05 % APPLY TOPICALLY TO THE AFFECTED AREA TWICE DAILY NEEDED External Active Aspirin Adult Low Dose 81 MG 1 tablet Or ally Once a day Active Simvastatin 20 MG TAKE 1 TABLET BY TRAVIS TH EVERY DAY IN THE EVENING Active Social History Tobacco Use: Social History Observation Description Date Details (start date - stop date) Former Smoker NA - NA Tobacco Use/Smoking Question Answer Notes Patient is a former smoker How long has it been since you last smoked? > 10 years Additional Findings: Tobacco Non-User Ex-cigaret te smoker Vital Signs Temperature 98.4 degrees Fahrenheit 03/14/19 25 Blood pressure systolic 114 mm Hg 03/14/19 25 Blood pressure diastolic 61 mm Hg 025 Heart Rate 88 /min 03/14/2024 Height 68 in 03/14/2024 Weight 145 lbs 03/14/2024 BMI 22.04 kg/m2 03/14/2024 Encounters Encounter Location Date Provider Diagnosis Shimon Cerna III, MD [address] [place] [address] [place] [address] 03/14/2024 Shimon Cerna Essential hypertensi on I10 ; Localized osteoarthritis of right knee M17.11 ; Mixed hyperlipidemia E78.2 ; Vision loss of left eye H54.62 ; Left inguinal hernia K40.90 ; Eczema, unspecified type L30.9 ; Senile cataract of right eye, unspecified age-related cataract type H25.9 ; Benign prostatic hyperplasia, unspecified whether lower urinary tract symptoms present N40.0 and Former smoker Z87.891 Assessments Encounter Date Diagnosis (ICD Code) Assessment Notes Treat ment Notes Treatment Clinical Notes 03/14/2024 Essential hypertension (ICD-10 - I10) His blood pressure is controlled at 114/61 and no change in his regimen was needed. 03/14/2024 Localized osteoarthritis of right knee (ICD-10 - M17.11) He has had one knee replacement in the opposite knee. He has a recurrent effusion in his left knee which limits ambulation and range of motion. No sign of infection is present. He was referred back to urgent care [facility]. 03/14/2024 Mixed hyperlipidemia (ICD-10 - E78.2) His lipids are in near target range with a total cholesterol of 179. No change in his regimen as needed. 03/14/2024 Vision loss of left eye (ICD-10 - H54.62) He reports that the vision in the right eye has now returned to normal. 03/14/2024 Left inguinal hernia (ICD-10 - K40.90) There is a small left inguinal hernia which is asymptomatic. Observation may be continued safely. 03/14/2024 Eczema, unspecified type (ICD-10 - L30.9) With the use of topical steroids. His lesions have faded away. 03/14/2024 Senile cataract of right eye, unspecified age-related cataract type (ICD-10 - H25.9) This gentleman is medically stable. He is cleared for cataract extraction with the Minimal risk of a healthy 77-year-old gentleman. 03/14/2024 Benign prostatic hyperplasia, unspecified whether lower urinary tract symptoms present (ICD-10 - N40.0) 03/14/2024 Former smoker (ICD-1 0 - Z87.891) He seems highly motivated not to smoke. We discussed a plan to prevent relapse in times of stress and illness. Plan Of Treatment Medication Medication Name Sig Start Date Stop Date Notes Lisinopril 20 MG TAKE 1 TABLET BY TRAVIS TH EVERY DAY Terbinafine HCl 1 % APPLY TOPICALLY TO T HE AFFECTED AREA THREE TIMES DAILY FOR 21 DAYS External PreserVision AREDS - as directed Orally Betamethasone Dipropionate 0 .05 % APPLY TOPICALLY TO THE AFFECTED AREA TWICE DAILY NEEDED External Aspirin Adult Low Dose 81 MG 1 tablet Orally Once a day Simvastatin 20 MG TAKE 1 TABLET BY TRAVIS TH EVERY DAY IN THE EVENING Pending Test Test Name Order Date PROFILE, FASTING (COMPREHENSIVE METABOLI C) 03/14/2024 PSA, TOTAL 03/14/2024 CBC WITH AUTO DIFF 03/14/2024 Lipid Panel 03/14/2024 Next Appt Details Follow Up: As Scheduled, In four months, Reason: OV, Annual Exam, Routine follow-up Provider Name:Shimon Cerna, 12/12/2024 02:00:00 PM, [address] [place] [address] [address] [place], [place], [address], Provider Name:Shimon Cerna, 08/12/2025 02:30:00 PM, [address] [place] [address] [place], [place], [phone], Progress Notes * Wayne GARCÍADOB: [birth year] (78 yo M)Acc No.[id number]:03/14/2024 Progress Notes Patient: Wayne CAMPOS Provider: Louisa Cerna MD :1945 A ge:78 Y S ex:Male Date:03/14/2024 Address:[address] [place], [place] [address], [place] Subjective: * Chief Complaints: * O steoarthritis left kneeAsymptomatic left inguinal herniaPlanned left total knee Arthroplasty April 2024HypertensionVision loss, left eyeBenign prostatic hypertrophyHyperlipidemia * HPI: C OVID-19 Screening: Questions H ave you had any new onset fever, chills, cough, congestion, sore throat, shortness of breath, muscle aches? N o * : The patient, an 78-year-old male, presented with a history of left knee issues and is scheduled to be evaluated for possible surgery on May 03. The same doctor who performed a successful right knee surgery 20 years ago will be conducting the evaluation. The patient also reported a longstanding left Anaid hernia, which does not cause him any discomfort or issues. He has been experiencing vision issues, including floaters in both eyes and a cataract in the right eye. The patient also reported getting up four times a night to urinate, which he attributes to high fluid intake. 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 The patient also has a hearing aid and has been told he produces too much ear wax. Blood Sugar Level is 103. * ROS: G eneral/Constitutional: pain L eft knee with weightbearing. C hills d enies. F atigue a dmits. F ever d enies. E NT: Decreased hearing m ild. R [...] wollen glands n one have been noted. M en Only: Admits Lo medel. G enitourinary: Frequent urination t wice a night. M usculoskeletal: Muscle aches d [...] ilateral cataract surgery 12/2019left hand ganglion cust 4Right knee surgery * Hospitalization/Major Diagno stic Procedure: N o history * Family History: F ather: 66 yrs, diagnosed with HTN, CVD. M other: 87 yrs, diagnosed with DM. C hildren: alive. S ibjanice: alive, diagnosed with Cancer. 2 sister(s) . 1 [...] dditional Findings: Tobacco Non-User E x-cigarette smoker H e was born and [place], [place]. He is a former smoker. 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 He has a daughter Nohemy. He has been to [facility] for 48 years. * Medications: T akingLisinopril 20 MG Tablet TAKE 1 TABLET BY MOUTH EVERY DAY Simvastatin 20 MG Tablet TAKE 1 TABLET BY MOUTH EVERY DAY IN THE EVENING Aspirin Adult Low Dose 81 MG Tablet Delayed Release 1 tablet Orally Once a day Betamethasone Dipropionate 0.05 % Cream APPLY TOPICALLY TO THE AFFECTED AREA TWICE DAILY NEEDED External Terbinafine HCl 1 % Cream APPLY TOPICALLY TO THE AFFECTED AREA THREE TIMES DAILY FOR 21 DAYS External PreserVision AREDS - Capsule as directed Orally Medication List reviewed and reconciled with the patientTaking Lisinopril 20 MG Tablet TAKE 1 TABLET BY MOUTH EVERY DAY Taking Simvastatin 20 MG Tablet TAKE 1 TABLET BY MOUTH EVERY DAY IN THE EVENING Taking Aspirin Adult Low Dose 81 MG Tablet Delayed Release 1 tablet Orally Once a day Taking Betamethasone Dipropionate 0.05 % Cream APPLY TOPICALLY TO THE AFFECTED AREA TWICE DAILY NEEDED External Taking Terbinafine HCl 1 % Cream APPLY TOPICALLY TO THE AFFECTED AREA THREE TIMES DAILY FOR 21 DAYS External Taking PreserVision AREDS - Capsule as directed Orally Medication List reviewed and reconciled with the patient * Allergies: N o Known Drug Allergyno[Allergies Verified] Objective: * Vitals: H t: 68, Wt:145, BMI:22.04, BP:114/61, HR:88, Temp:98.4, Wt-k.77. * P ast Orders: Lab:Complete Blood Count Aut o Diff * Collection Date 03/05/2024 11/03/2023 08/25/2023 Collection Time 09:24 AM 09:48 AM 09:27 AM Order Date 03/05/2024 11/03/2023 08/25/2023 White Blood Count 11.1 H (Ref Range: 4.8-10.8 X10*3/uL) 6.6 (Ref Range: 4.8-10.8 X10*3/uL) 8.6 (Ref Range: 4.8-10.8 X10*3/uL) Red Blood Count 4.70 (Ref Range: 4.60-5.80 X10*6/uL) 4.79 (Ref Range: 4.60-5.80 X10*6/uL) 4.82 (Ref Range: 4.60-5.80 X10*6/uL) Hemoglobin 14.6 (Ref Range: 14.0-18.0 g/dl) 14.7 (Ref Range: 14.0-18.0 g/dl) 15.1 (Ref Range: 14.0-18.0 g/dl) Hematocrit 41.6 L (Ref Range: 42.0-52.0 %) 42.4 (Ref Range: 42.0-52.0 %) 43.1 (Ref Range: 42.0-52.0 %) Mean Corpuscular Volume 88.5 (Ref Range: 80.0-98.0 fL) 88.5 (Ref Range: 80.0-98.0 fL) 89.4 (Ref Range: 80.0-98.0 fL) Mean Corpuscular Hemoglobin 31.1 (Ref Range: 27.0-33.0 pg) 30.7 (Ref Range: 27.0-33.0 pg) 31.3 (Ref Range: 27.0-33.0 pg) Mean Corpuscular HGB Conc 35.1 (Ref Range: 31.0-36.0 g/dl) 34.7 (Ref Range: 31.0-36.0 g/dl) 35.0 (Ref Range: 31.0-36.0 g/dl) Red Cell Distribution Width 13.0 (Ref Range: 11.0-16.0 %) 12.8 (Ref Range: 11.0-16.0 %) 13.0 (Ref Range: 11.0-16.0 %) Platelet Count 175 (Ref Range: 160-400 X10*3/uL) 158 L (Ref Range: 160-400 X10*3/uL) 142 L (Ref Range: 160-400 X10*3/uL) Mean Platelet Volume 8.8 L (Ref Range: 9.4-12.4 fL) 9.2 L (Ref Range: 9.4-12.4 fL) 9.3 L (Ref Range: 9.4-12.4 fL) Neutrophils Percent Auto 80.5 H (Ref Range: 45-73 %) 70.0 (Ref Range: 45-73 %) 76.5 H (Ref Range: 45-73 %) Imm Gran Pct Auto 0.6 H (Ref Range: 0.0-0.4 %) 0.5 H (Ref Range: 0.0-0.4 %) 0.5 H (Ref Range: 0.0-0.4 %) Lymphocytes Percent Auto 8.3 L (Ref Range: 20-40 %) 16.0 L (Ref Range: 20-40 %) 11.0 L (Ref Range: 20-40 %) Monocytes Percent Auto 7.8 (Ref Range: 2-11 %) 9.7 (Ref Range: 2-11 %) 8.3 (Ref Range: 2-11 %) Eosinophils Percent Auto 2.3 (Ref Range: 0-4 %) 3.2 (Ref Range: 0-4 %) 2.9 (Ref Range: 0-4 %) Basophils Percent Auto 0.5 (Ref Range: 0-2 %) 0.6 (Ref Range: 0-2 %) 0.8 (Ref Range: 0-2 %) NRBC Pct Auto 0.0 (Ref Range: 0.0-0.2 /100WBC) 0.0 (Ref Range: 0.0-0.2 /100WBC) 0.0 (Ref Range: 0.0-0.2 /100WBC) Neutrophils Absolute Auto 8.9 H (Ref Range: 2.0-8.3 x10*3/uL) 4.6 (Ref Range: 2.0-8.3 x10*3/uL) 6.6 (Ref Range: 2.0-8.3 x10*3/uL) Imm Gran Abs Auto 0.07 H (Ref Range: 0.00-0.03 X10*3/uL) 0.03 (Ref Range: 0.00-0.03 X10*3/uL) 0.04 H (Ref Range: 0.00-0.03 X10*3/uL) Lymphocytes Absolute Auto 0.9 L (Ref Range: 1.2-4.9 X10*3/uL) 1.1 L (Ref Range: 1.2-4.9 X10*3/uL) 1.0 L (Ref Range: 1.2-4.9 X10*3/uL) Monocytes Absolute Auto 0.9 (Ref Range: 0.1-1.2 X10*3/uL) 0.6 (Ref Range: 0.1-1.2 X10*3/uL) 0.7 (Ref Range: 0.1-1.2 X10*3/uL) Eosinophils Absolute Auto 0.3 (Ref Range: 0.0-0.4 X10*3/uL) 0.2 (Ref Range: 0.0-0.4 X10*3/uL) 0.3 (Ref Range: 0.0-0.4 X10*3/uL) Basophils Absolute Auto 0.1 (Ref Range: 0.0-0.2 X10*3/uL) 0.0 (Ref Range: 0.0-0.2 X10*3/uL) 0.1 (Ref Range: 0.0-0.2 X10*3/uL) NRBC Abs Auto 0.000 (Ref Range: 0.0-0.012 X10*3/uL) 0.000 (Ref Range: 0.0-0.012 X10*3/uL) 0.000 (Ref Range: 0.0-0.012 X10*3/uL) * Lab:[facility] [place]. Rade l Fast * Collection Date 03/05/2024 11/03/2023 08/25/2023 Collection Time 09:24 AM 09:48 AM 09:27 AM Order Date 03/05/2024 11/03/2023 08/25/2023 Sodium 139 (Ref Range: 135-145 mmol/L) 140 (Ref Range: 135-145 mmol/L) 140 (Ref Range: 135-145 mmol/L) Bilirubin Total 0.7 (Ref Range: 0.0-1.0 mg/dL) 0.8 (Ref Range: 0.0-1.0 mg/dL) 0.7 (Ref Range: 0.0-1.0 mg/dL) Aspartate Amino Transferase 20 (Ref Range: 5-37 U/L) 18 (Ref Range: 5-37 U/L) 23 (Ref Range: 5-37 U/L) Alanine Aminotransferase 23 (Ref Range: 0-40 U/L) 17 (Ref Range: 0-40 U/L) 25 (Ref Range: 0-40 U/L) Total Protein 6.6 (Ref Range: 6.5-8.0 g/dL) 6.8 (Ref Range: 6.5-8.0 g/dL) 6.6 (Ref Range: 6.5-8.0 g/dL) Albumin Level 4.3 (Ref Range: 3.5-5.0 g/dL) 4.4 (Ref Range: 3.5-5.0 g/dL) 4.3 (Ref Range: 3.5-5.0 g/dL) Alkaline Phosphatase 46 (Ref Range: 39-117 U/L) 46 (Ref Range: 39-117 U/L) 41 (Ref Range: 39-117 U/L) Potassium 4.4 (Ref Range: 3.3-5.1 mmol/L) 4.4 (Ref Range: 3.3-5.1 mmol/L) 4.8 (Ref Range: 3.3-5.1 mmol/L) Chloride 105 (Ref Range: 96-108 mmol/L) 105 (Ref Range: 96-108 mmol/L) 104 (Ref Range: 96-108 mmol/L) Carbon Dioxide 27 (Ref Range: 22-29 mmol/L) 25 (Ref Range: 22-29 mmol/L) 28 (Ref Range: 22-29 mmol/L) Anion Gap 11 L (Ref Range: 12-20) 14 (Ref Range: 12-20) 13 (Ref Range: 12-20) Blood Urea Nitrogen 16 (Ref Range: 9-16 mg/dL) 17 H (Ref Range: 9-16 mg/dL) 14 (Ref Range: 9-16 mg/dL) Creatinine 0.86 (Ref Range: 0.5-1.4 mg/dL) 0.88 (Ref Range: 0.5-1.4 mg/dL) 0.85 (Ref Range: 0.5-1.4 mg/dL) Estimated Glomerular Filt Rate > 60 > 60 > 60 Glucose Fasting 103 H (Ref Range: 60-99 mg/dL) 104 H (Ref Range: 60-99 mg/dL) 102 H (Ref Range: 60-99 mg/dL) Calcium 8.9 (Ref Range: 8.4-10.2 mg/dL) 9.7 (Ref Range: 8.4-10.2 mg/dL) 9.2 (Ref Range: 8.4-10.2 mg/dL) * Lab:Lipid Panel * Collection Date 03/05/2024 11/03/2023 08/25/2023 Collection Time 09:24 AM 09:48 AM 09:27 AM Order Date 03/05/2024 11/03/2023 08/25/2023 Triglycerides 88 (Ref Range: <150 mg/dL) 86 (Ref Range: <150 mg/dL) 52 (Ref Range: <150 mg/dL) Cholesterol 174 (Ref Range: <200 mg/dL) 179 (Ref Range: <200 mg/dL) 160 (Ref Range: <200 mg/dL) LDL Cholesterol Calculated 101 H (Ref Range: <100 mg/dL) 111 H (Ref Range: <100 mg/dL) 91 (Ref Range: <100 mg/dL) HDL Cholesterol 56 (Ref Range: >40 mg/dL) 51 (Ref Range: >40 mg/dL) 59 (Ref Range: >40 mg/dL) * Lab:Prostate Specific Antige n * Collection Date 03/05/2024 11/03/2023 12/29/2022 Collection Time 09:24 AM 09:48 AM 09:43 AM Order Date 03/05/2024 11/03/2023 12/29/2022 Prostate Specific Antigen 2.47 (Ref Range: <0.05-4.0 ng/mL) 2.41 (Ref Range: <0.05-4.0 ng/mL) 2.12 (Ref Range: <0.05-4.0 ng/mL) * Examination: G eneral Examination: GENERAL APPEARANCE: p leasant, well nourished, well developed, in no acute distress, calm and relaxed, elderly man. HEAD: a traumatic, normocephalic. EYES: [...] sounds normal, no ascites, no organomegaly, no mass. RECTAL EXAM: n ot examined. MUSCULOSKELETAL: S urgical scar well healed. Right knee with normal range of motion, crepitus left knee with some pain to range of motion no effusion.? PERIPHERAL PULSES: n ormal. NEUROLOGIC: a lert and oriented, cranial nerves 2-12 grossly intact, deep tendon reflexes 2+ symmetrical, motor strength normal upper and lower extremities, sensory exam intact. PSYCH: a lert, oriented, cognitive function intact, good eye contact, speech clear, thought process logical, goal directed. Assessment: * Assessment: 1. E ssential hypertension - I10 (Primary) N otes :His blood pressure is controlled at 114/61 and no change in his regimen was needed. 2 . L ocalized osteoarthritis of right knee - M17.11 N otes :He has had one knee replacement in the opposite knee. He has a recurrent effusion in his left knee which limits ambulation and range of motion. No sign of infection is present. He was referred back to urgent care [facility]. 3 . M ixed hyperlipidemia - E78.2 N otes :His lipids are in near target range with a total cholesterol of 179. No change in his regimen as needed. 4 . V ision loss of left eye - H54.62 N otes :He reports that the vision in the right eye has now returned to normal. 5 . L eft inguinal hernia - K40.90 N otes :There is a small left inguinal hernia which is asymptomatic. Observation may be continued safely. 6 . E czema, unspecified type - L30.9 N otes :With the use of topical steroids. His lesions have faded away. 7 . S enile cataract of right eye, unspecified age-related cataract type - H25.9 N otes :This gentleman is medically stable. He is cleared for cataract extraction with the Minimal risk of a healthy 77-year-old gentleman. 8 . B enign prostatic hyperplasia, unspecified whether lower urinary tract symptoms present - N40.0 9 . F ormer smoker - Z87.891 N otes :He seems highly motivated not to smoke. We [...] THE AFFECTED AREA TWICE DAILY NEEDED, External. * Procedure Codes: * Preventive Medicine: Counseling: S moking/Tobacco Use Patient counseled on the dangers of tobacco use and urged to quit. 0 03/14/2024 * Follow Up: A s Scheduled, In four months (Reason: OV, Annual Exam, Routine follow-up) * Images: * Sign off status: Completed true * Provider: Louisa Cerna MD Date: 0 03/14/2024 Generated for Freya mg/Lilliam/Buffysmitting on: 0 11/07/2024 04:11 PM EDT History and Physical Notes * HPI (History of Present Illness) Category Sub-Category Detail Notes COVID-19 Screening Questions Have you had any new onset fever, chills, cough, congestion, sore throat, shortness of breath, muscle aches?: No Examination Category Sub-Category Detail Notes General Examination GENERAL APPEARANCE: pleasant , well nourished, well developed, in no acute distress, calm and relaxed, elderly man HEAD: atraumatic, normocep halic EYES: eomi, perrla, anicte kassi, conjugate EARS: normal NOSE: septum intact NECK/THYROID: no jugular venous di stention, no carotid bruit, thyroid normal HEART: no clicks, gallops, murmurs, or rubs, regular rhythm, S1, S2 normal, no s3, or vascular bruits LUNGS: clear to auscultatio n ABDOMEN: bowel sounds normal, no ascites, no organomegaly, no mass NEUROLOGIC: alert and oriented, cranial nerves 2-12 grossly intact, deep tendon reflexes 2+ symmetrical, motor strength normal upper and lower extremities, sensory exam intact SKIN: no suspicious lesion s, anicteric PERIPHERAL PULSES: normal BREASTS: no masses palpable b ilaterally MUSCULOSKELETAL: Surgical scar well h ealed. Right knee with normal range of motion, crepitus left knee with some pain to range of motion no effusion LYMPH NODES: no enlarged lymph no ebonie,spleen normal RECTAL EXAM: not examined PSYCH: alert, oriented, cog nitive function intact, good eye contact, speech clear, thought process logical, goal directed ORAL CAVITY: normal, unremarkable
--- OUTSIDE RECORDS SUMMARY | 2024-08-08 10:30 | XMS_ITS ---
Author Organization Shimon Cerna III, MD Address [address] [place] [place] [address] Care Team Providers Care Community Service Worker Name Role Phone Shimon Cerna Primary Care Provider Allergies Allergen (clinical drug ingredient) Drug/Non Drug Allergy documented on EMR Reaction Allergy Type Onset Date Status No Known Drug Allergy Unknown Drug Allergy Active No Known Food Allergy Unknown Drug Allergy Active Results Component Value Reference Range Notes URINE DIP STICK Reviewed date:08/08/2024 03:05:08 PM Interpretation: Performing Lab: Notes/Report: SG 1.010 1.005 - 1.025 pH 6.0 5.0 - 9.0 AB Negative Negative - NIT Negative Negative - PRO 15 Negative - Trace GLU Negative Negative - KET Negative Negative - UBG 0.2 0.1 - 1.8 NAOMI Negative 0.2 - 1.3 BLD Negative Negative - Menstrating N/A REASON FOR VISIT Annual Exam Medications Medication SIG (Take, Route, Frequency, Duration) Notes Start Date End Date Status Lisinopril 20 MG TAKE 1 TABLET BY EVERY DAY Active Aspirin Adult Low Dose 81 MG 1 tablet Orally Once a day Active Betamethasone Dipropionate 0.05 % APPLY TOPICALLY TO THE AFFECTED AREA TWICE DAILY NEEDED External Active Triamcinolone Acetonide 0.1 % 1 application Externally twice a day for 30 days 08/08/2024 Active Simvastatin 20 MG 1 tablet in the even ing Orally Once a day Active Terbinafine HCl 1 % APPLY TOPICALLY TO T HE AFFECTED AREA THREE TIMES DAILY FOR 21 DAYS External Active PreserVision AREDS - as directed Orally Active Social History Tobacco Use: Social History Observation Description Date Details (start date - stop date) Former Smoker NA - NA Tobacco Control (Standard) Question Answer Notes Tobacco use: Former smoker How long has it been since you last smoked? Grea ter than 10 years Additional Findings: Tobacco non-user Ex-cigaret te smoker AUDIT-C (Standard) Question Answer Notes Did you have a drink containing alcohol in the p ast year? No Points 0 Interpretation Negative Vital Signs Temperature 98.8 degrees Fahrenheit 08/09/19 25 Blood pressure systolic 115 mm Hg 08/09/19 25 Blood pressure diastolic 72 mm Hg 025 Heart Rate 84 /min 08/08/2024 Height 68 in 08/08/2024 Weight 144 lbs 08/08/2024 BMI 21.89 kg/m2 08/08/2024 Encounters Encounter Location Date Provider Diagnosis Shimon Cerna III, MD [address] [place] [address] [place] [address] 08/08/2024 Shimon Cerna Essential hypertensi on I10 ; Localized osteoarthritis of right knee M17.11 ; Vision loss of left eye H54.62 ; Former smoker Z87.891 ; Eczema, unspecified type L30.9 and Benign prostatic hyperplasia, unspecified whether lower urinary tract symptoms present N40.0 Assessments Encounter Date Diagnosis (ICD Code) Assessment Notes Treat ment Notes Treatment Clinical Notes 08/08/2024 Essential hypertension (ICD-10 - I10) His blood pressure is controlled at 115/72 and no change in his regimen was needed. 08/08/2024 Localized osteoarthritis of right knee (ICD-10 - M17.11) He has had one knee replacement in the opposite knee. He has a recurrent effusion in his left knee which limits ambulation and range of motion. No sign of infection is present. He was referred back to urgent care [facility]opedic surgeons. 08/08/2024 Vision loss of left eye (ICD-10 - H54.62) He reports that the vision in the right eye has now returned to normal. 08/08/2024 Former smoker (ICD-1 0 - Z87.891) He seems highly motivated not to smoke. We discussed a plan to prevent relapse in times of stress and illness. 08/08/2024 Eczema, unspecified type (ICD-10 - L30.9) With the use of topical steroids. His lesions have faded away. 08/08/2024 Benign prostatic hyperplasia, unspecified whether lower urinary tract symptoms present (ICD-10 - N40.0) He rises from sleep once or twice a night. We discussed lifestyle modifications he could make to reduce nocturia. Plan Of Treatment Medication Medication Name Sig Start Date Stop Date Notes Lisinopril 20 MG TAKE 1 TABLET BY TRAVIS TH EVERY DAY Aspirin Adult Low Dose 81 MG 1 tablet Orally Once a day Betamethasone Dipropionate 0.05 % APPLY TOPICALLY TO THE AFFECTED AREA TWICE DAILY NEEDED External Triamcinolone Acetonide 0.1 % 1 applicat ion Externally twice a day for 30 days 08/08/2024 Simvastatin 20 MG 1 tablet in the even ing Orally Once a day Terbinafine HCl 1 % APPLY TOPICALLY TO T HE AFFECTED AREA THREE TIMES DAILY FOR 21 DAYS External PreserVision AREDS - as directed Orally Pending Test Test Name Order Date PROFILE, FASTING (COMPREHENSIVE METABOLI C) 08/08/2024 PSA, TOTAL 08/08/2024 CBC w DIFF 08/08/2024 Lipid Panel 08/08/2024 Next Appt Details Follow Up: 4 Months, Reason: ov review labs Provider Name:Shimon Cerna, 12/12/2024 02:00:00 PM, [address] [place] [address] [address], [place], [address], Provider Name:Shimon Cerna, 08/12/2025 02:30:00 PM, [address] [place] [address] [address], [place], [address], Progress Notes * Wayne GARCÍADOB: [birth year] (78 yo M)Acc No.[id number]:08/08/2024 Progress Notes Patient: Wayne CAMPOS Provider: Louisa Cerna MD :1945 A ge:78 Y S ex:Male Date:08/08/2024 Address: [address], [id number] Subjective: * Chief Complaints: * A nnual Exam * HPI: D epression Screening: .He returns to the office at the age of 78 for his annual visit. Comprehensive blood work was available was reviewed with him. No changes in his regimen was necessary today. On June 13, 2024 at the [facility] he had a left total knee replacement. He has lost weight since his last visit. Vision loss in his left eye is stable. The vision in his right eye remains intact. PHQ-9 L ittle interest or pleasure in doing things?Not at all F eeling down, depressed, or hopeless N ot at all T rouble falling or staying asleep, or sleeping too much N early every day F eeling tired or having little energy N early every day P oor appetite or overeating N ot at all F eeling bad about yourself or that you are a failure, or have let yourself or your family down N ot at all T rouble concentrating on things, such as reading the newspaper or watching television N ot at all M oving or speaking so slowly that other people could have noticed; or the opposite, being so fidgety or restless that you have been moving around a lot more than usual N ot at all T houghts that you would be better off or of hurting yourself in some way N ot at all T otal Score 6 I nterpretation M ild Depression C OVID-19 Screening: Questions H ave you had any new onset fever, chills, cough, congestion, sore throat, shortness of breath, muscle aches? N o S MIGUEL Questions: SDOH Questions I n the past year have you been worried about losing your housing? N o I n the past year have you or any family members you live with been unable to get any of the following when it was really needed? Check all that apply: N one F all Risk Screening: Fall History H ave you had any falls with injury in the past year? N o H ave you had two or more falls in the past year? N o F all Risk Assessment: N o falls in the past year * ROS: G eneral/Constitutional: pain o nly normal aches and pains. C hills d enies.?Fatigue a dmits. F ever d enies. E [...] been noted. G enitourinary: Frequent urination t wice a [...] 12/2019left hand ganglion cust ight knee surgery Left knee surgery 06/2024 * Hospitalization/Major Diagno stic Procedure: N o history * Family History: F ather: 66 yrs, diagnosed with HTN, CVD. M other: 87 yrs, diagnosed with DM. C benjamin: alive. S stacey: alive, diagnosed with Cancer. 2 sister(s) . [...] Social History: T obacco Use: T obacco Control (Standard) T obacco use: F ormer smoker H ow long has it been since you last smoked??Greater than 10 years A dditional Findings: Tobacco non-user E x-cigarette smoker D rugs/Alcohol: D rugs H ave you used drugs other than those for medical reasons in the past 12 months? N o D rug/Alcohol: A ANAHI-C (Standard) D id you have a drink containing alcohol in the past year? N o P oints 0 I nterpretation N egative Lo giles was born and [place], [place]. He is a former smoker. 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 He has a daughter Nohemy. He has been to [facility] for 48 years. * Medications: T akingLisinopril 20 MG Tablet TAKE 1 TABLET BY MOUTH EVERY DAY Aspirin Adult Low Dose 81 MG Tablet Delayed Release 1 tablet Orally Once a day Betamethasone Dipropionate 0.05 % Cream APPLY TOPICALLY TO THE AFFECTED AREA TWICE DAILY NEEDED External Terbinafine HCl 1 % Cream APPLY TOPICALLY TO THE AFFECTED AREA THREE TIMES DAILY FOR 21 DAYS External PreserVision AREDS - Capsule as directed Orally Simvastatin 20 MG Tablet 1 tablet in the evening Orally Once a day Medication List reviewed and reconciled with the patientTaking Lisinopril 20 MG Tablet TAKE 1 TABLET BY MOUTH EVERY DAY Taking Aspirin Adult Low Dose 81 MG [...] directed Orally Taking Simvastatin 20 MG Tablet 1 tablet in the evening Orally Once a day Medication List reviewed and reconciled with the patient * Allergies: N o Known Drug AllergyNo Known Food Allergyno[Allergies Verified] Objective: * Vitals: H t: 68, Wt:144, BMI:21.89, BP:115/72, HR:84, Temp:98.8, Wt-k.32. * P ast Orders: Lab:Complete Blood Count Aut o Diff * Collection Date 08/01/2024 03/05/2024 11/03/2023 Collection Time 09:17 AM 09:24 AM 09:48 AM Order Date 08/01/2024 03/05/2024 11/03/2023 White Blood Count 6.2 (Ref Range: 4.8-10.8 X10*3/uL) 11.1 H (Ref Range: 4.8-10.8 X10*3/uL) 6.6 (Ref Range: 4.8-10.8 X10*3/uL) Red Blood Count 4.37 L (Ref Range: 4.60-5.80 X10*6/uL) 4.70 (Ref Range: 4.60-5.80 X10*6/uL) 4.79 (Ref Range: 4.60-5.80 X10*6/uL) Hemoglobin 13.1 L (Ref Range: 14.0-18.0 g/dl) 14.6 (Ref Range: 14.0-18.0 g/dl) 14.7 (Ref Range: 14.0-18.0 g/dl) Hematocrit 38.6 L (Ref Range: 42.0-52.0 %) 41.6 L (Ref Range: 42.0-52.0 %) 42.4 (Ref Range: 42.0-52.0 %) Mean Corpuscular Volume 88.3 (Ref Range: 80.0-98.0 fL) 88.5 (Ref Range: 80.0-98.0 fL) 88.5 (Ref Range: 80.0-98.0 fL) Mean Corpuscular Hemoglobin 30.0 (Ref Range: 27.0-33.0 pg) 31.1 (Ref Range: 27.0-33.0 pg) 30.7 (Ref Range: 27.0-33.0 pg) Mean Corpuscular HGB Conc 33.9 (Ref Range: 31.0-36.0 g/dl) 35.1 (Ref Range: 31.0-36.0 g/dl) 34.7 (Ref Range: 31.0-36.0 g/dl) Red Cell Distribution Width 13.8 (Ref Range: 11.0-16.0 %) 13.0 (Ref Range: 11.0-16.0 %) 12.8 (Ref Range: 11.0-16.0 %) Platelet Count 193 (Ref Range: 160-400 X10*3/uL) 175 (Ref Range: 160-400 X10*3/uL) 158 L (Ref Range: 160-400 X10*3/uL) Mean Platelet Volume 8.7 L (Ref Range: 9.4-12.4 fL) 8.8 L (Ref Range: 9.4-12.4 fL) 9.2 L (Ref Range: 9.4-12.4 fL) Neutrophils Percent Auto 66.8 (Ref Range: 45-73 %) 80.5 H (Ref Range: 45-73 %) 70.0 (Ref Range: 45-73 %) Imm Gran Pct Auto 0.5 H (Ref Range: 0.0-0.4 %) 0.6 H (Ref Range: 0.0-0.4 %) 0.5 H (Ref Range: 0.0-0.4 %) Lymphocytes Percent Auto 16.7 L (Ref Range: 20-40 %) 8.3 L (Ref Range: 20-40 %) 16.0 L (Ref Range: 20-40 %) Monocytes Percent Auto 10.0 (Ref Range: 2-11 %) 7.8 (Ref Range: 2-11 %) 9.7 (Ref Range: 2-11 %) Eosinophils Percent Auto 5.0 H (Ref Range: 0-4 %) 2.3 (Ref Range: 0-4 %) 3.2 (Ref Range: 0-4 %) Basophils Percent Auto 1.0 (Ref Range: 0-2 %) 0.5 (Ref Range: 0-2 %) 0.6 (Ref Range: 0-2 %) NRBC Pct Auto 0.0 (Ref Range: 0.0-0.2 /100WBC) 0.0 (Ref Range: 0.0-0.2 /100WBC) 0.0 (Ref Range: 0.0-0.2 /100WBC) Neutrophils Absolute Auto 4.1 (Ref Range: 2.0-8.3 x10*3/uL) 8.9 H (Ref Range: 2.0-8.3 x10*3/uL) 4.6 (Ref Range: 2.0-8.3 x10*3/uL) Imm Gran Abs Auto 0.03 (Ref Range: 0.00-0.03 X10*3/uL) 0.07 H (Ref Range: 0.00-0.03 X10*3/uL) 0.03 (Ref Range: 0.00-0.03 X10*3/uL) Lymphocytes Absolute Auto 1.0 L (Ref Range: 1.2-4.9 X10*3/uL) 0.9 L (Ref Range: 1.2-4.9 X10*3/uL) 1.1 L (Ref Range: 1.2-4.9 X10*3/uL) Monocytes Absolute Auto 0.6 (Ref Range: 0.1-1.2 X10*3/uL) 0.9 (Ref Range: 0.1-1.2 X10*3/uL) 0.6 (Ref Range: 0.1-1.2 X10*3/uL) Eosinophils Absolute Auto 0.3 (Ref Range: 0.0-0.4 X10*3/uL) 0.3 (Ref Range: 0.0-0.4 X10*3/uL) 0.2 (Ref Range: 0.0-0.4 X10*3/uL) Basophils Absolute Auto 0.1 (Ref Range: 0.0-0.2 X10*3/uL) 0.1 (Ref Range: 0.0-0.2 X10*3/uL) 0.0 (Ref Range: 0.0-0.2 X10*3/uL) NRBC Abs Auto 0.000 (Ref Range: 0.0-0.012 X10*3/uL) 0.000 (Ref Range: 0.0-0.012 X10*3/uL) 0.000 (Ref Range: 0.0-0.012 X10*3/uL) * Lab:[facility] Epps. Judi l Fast * Collection Date 08/01/2024 03/05/2024 11/03/2023 Collection Time 09:17 AM 09:24 AM 09:48 AM Order Date 08/01/2024 03/05/2024 11/03/2023 Sodium 139 (Ref Range: 135-145 mmol/L) 139 (Ref Range: 135-145 mmol/L) 140 (Ref Range: 135-145 mmol/L) Bilirubin Total 0.6 (Ref Range: 0.0-1.0 mg/dL) 0.7 (Ref Range: 0.0-1.0 mg/dL) 0.8 (Ref Range: 0.0-1.0 mg/dL) Aspartate Amino Transferase 25 (Ref Range: 5-37 U/L) 20 (Ref Range: 5-37 U/L) 18 (Ref Range: 5-37 U/L) Alanine Aminotransferase 22 (Ref Range: 0-40 U/L) 23 (Ref Range: 0-40 U/L) 17 (Ref Range: 0-40 U/L) Total Protein 6.8 (Ref Range: 6.5-8.0 g/dL) 6.6 (Ref Range: 6.5-8.0 g/dL) 6.8 (Ref Range: 6.5-8.0 g/dL) Albumin Level 4.5 (Ref Range: 3.5-5.0 g/dL) 4.3 (Ref Range: 3.5-5.0 g/dL) 4.4 (Ref Range: 3.5-5.0 g/dL) Alkaline Phosphatase 47 (Ref Range: 39-117 U/L) 46 (Ref Range: 39-117 U/L) 46 (Ref Range: 39-117 U/L) Potassium 4.4 (Ref Range: 3.3-5.1 mmol/L) 4.4 (Ref Range: 3.3-5.1 mmol/L) 4.4 (Ref Range: 3.3-5.1 mmol/L) Chloride 105 (Ref Range: 96-108 mmol/L) 105 (Ref Range: 96-108 mmol/L) 105 (Ref Range: 96-108 mmol/L) Carbon Dioxide 29 (Ref Range: 22-29 mmol/L) 27 (Ref Range: 22-29 mmol/L) 25 (Ref Range: 22-29 mmol/L) Anion Gap 9 L (Ref Range: 12-20) 11 L (Ref Range: 12-20) 14 (Ref Range: 12-20) Blood Urea Nitrogen 18 H (Ref Range: 9-16 mg/dL) 16 (Ref Range: 9-16 mg/dL) 17 H (Ref Range: 9-16 mg/dL) Creatinine 0.87 (Ref Range: 0.5-1.4 mg/dL) 0.86 (Ref Range: 0.5-1.4 mg/dL) 0.88 (Ref Range: 0.5-1.4 mg/dL) Estimated Glomerular Filt Rate > 60 > 60 > 60 Glucose Fasting 97 (Ref Range: 60-99 mg/dL) 103 H (Ref Range: 60-99 mg/dL) 104 H (Ref Range: 60-99 mg/dL) Calcium 9.4 (Ref Range: 8.4-10.2 mg/dL) 8.9 (Ref Range: 8.4-10.2 mg/dL) 9.7 (Ref Range: 8.4-10.2 mg/dL) * Lab:Lipid Panel * Collection Date 08/01/2024 03/05/2024 11/03/2023 Collection Time 09:17 AM 09:24 AM 09:48 AM Order Date 08/01/2024 03/05/2024 11/03/2023 Triglycerides 80 (Ref Range: <150 mg/dL) 88 (Ref Range: <150 mg/dL) 86 (Ref Range: <150 mg/dL) Cholesterol 172 (Ref Range: <200 mg/dL) 174 (Ref Range: <200 mg/dL) 179 (Ref Range: <200 mg/dL) LDL Cholesterol Calculated 104 H (Ref Range: <100 mg/dL) 101 H (Ref Range: <100 mg/dL) 111 H (Ref Range: <100 mg/dL) HDL Cholesterol 52 (Ref Range: >40 mg/dL) 56 (Ref Range: >40 mg/dL) 51 (Ref Range: >40 mg/dL) * Lab:Prostate Specific Antige n * Collection Date 08/01/2024 03/05/2024 11/03/2023 Collection Time 09:17 AM 09:24 AM 09:48 AM Order Date 08/01/2024 03/05/2024 11/03/2023 Prostate Specific Antigen 3.68 (Ref Range: <0.05-4.0 ng/mL) 2.47 (Ref Range: <0.05-4.0 ng/mL) 2.41 (Ref Range: <0.05-4.0 ng/mL) * Lab:URINE DIP STICK * Collection Date 08/08/2024 04/28/2022 10/22/2020 Order Date 08/08/2024 04/28/2022 10/22/2020 SG 1.010 (Ref Range: 1.005 - 1.025) 1.000 1.010 pH 6.0 (Ref Range: 5.0 - 9.0) 5.0 6 AB Negative (Ref Range: Negative -) neg neg NIT Negative (Ref Range: Negative -) neg neg PRO 15 (Ref Range: Negative - Trace) neg trace GLU Negative (Ref Range: Negative -) normal normal KET Negative (Ref Range: Negative -) neg neg UBG 0.2 (Ref Range: 0.1 - 1.8) 0.2 normal NAOMI Negative (Ref Range: 0.2 - 1.3) neg neg BLD Negative (Ref Range: Negative -) neg neg Menstrating N/A N/A n/a * Examination: G eneral Examination: GENERAL APPEARANCE: p marcy, well nourished, well developed, in no acute [...] mass. RECTAL EXAM: n ot examined. MUSCULOSKELETAL: e xtremities unremarkable, no clubbing, cyanosis or edema, Surgical scar right knee from recent knee replacement. PERIPHERAL PULSES: n ormal. NEUROLOGIC: a lert and oriented, cranial nerves 2-12 grossly intact, deep tendon reflexes 2+ symmetrical, motor strength normal upper and lower extremities, sensory exam intact. PSYCH: a lert, oriented. Assessment: * Assessment: 1. E ssential hypertension - I10 (Primary) N otes :His blood pressure is controlled at 115/72 and no change in his regimen was needed. 2 . L ocalized osteoarthritis of right knee - M17.11 N otes :He has had one knee replacement in the opposite knee. He has a recurrent effusion in his left knee which limits ambulation and range of motion. No sign of infection is present. He was referred back to urgent care [facility]opedic surgeons. 3 . V ision loss of left eye - H54.62 N otes :He reports that the vision in the right eye has now returned to normal. 4 . F ormer smoker - Z87.891 N otes :He seems highly motivated not to smoke. We discussed a plan to prevent relapse in times of stress and illness. 5 . E czema, unspecified type - L30.9 N otes :With the use of topical steroids. His lesions have faded away. 6 . B enign prostatic hyperplasia, unspecified whether lower urinary tract symptoms present - N40.0 N otes :He rises from sleep once or twice a night. We discussed lifestyle modifications he could make to reduce nocturia. Plan: * Treatment: * Labs: * L ab: PROFILE, FASTING (COMPREHENSIVE METABOLIC) L ab: PSA, TOTAL L ab: CBC w DIFF L ab: Lipid Panel L ab: URINE DIP STICK (Collection Date & Time - 08/08/2024) Value Reference Range S G 1.010 1.005 - 1.025 * p H 6.0 5.0 - 9.0 * L EU Negative Negative - * N IT Negative Negative - * P RO 15 Negative - Trace * G REX Negative Negative - * K ET Negative Negative - * U BG 0.2 0.1 - 1.8 * B IL Negative 0.2 - 1.3 * B LD Negative Negative - * M enstrating N/A * Procedure Codes: 8 1002 URINE-NO MICRO * Preventive Medicine: Counseling: C are goal follow-up plan: Counseling for abnormal BMI given Y es Below Normal BMI Follow-up D ietary education for weight gain, Dietary management education, guidance, and counseling, Feeding regime, Lifestyle education regarding diet, Nutrition / feeding management, Prescribed diet education, Special diet education, Intervention, Order not done: Medical or Other reason not done S moking/Tobacco Use Patient counseled on the dangers of tobacco use and urged to quit. 0 08/08/2024 * Follow Up: 4 Months (Reason: ov review labs) * Images: * Sign off status: Completed true * Provider: Louisa Cerna MD Date: 0 08/08/2024 Generated for Freya mg/Lilliam/Sammyitting on: 11/07/2024 04:11 PM EDT History and Physical Notes * HPI (History of Present Illness) Category Sub-Category Detail Notes Depression Screening PHQ-9 Little inte rest or pleasure in doing things: Not at all Feeling down, depressed, or hopeless: No t at all Trouble falling or staying asleep, or sl eeping too much: Nearly every day Feeling tired or having little energy: N early every day Poor appetite or overeating: Not at all Feeling bad about yourself o r that you are a failure, or have let yourself or your family down: Not at all Trouble concentrating on thi ngs, such as reading the newspaper or watching television: Not at all Moving or speaking so slowly that other people could have noticed; or the opposite, being so fidgety or restless that you have been moving around a lot more than usual: Not at all Thoughts that you would be b rafiq off or of hurting yourself in some way: Not at all Total Score: 6 Interpretation: Mild Depression Fall Risk Screening Fall History Have you had any falls with injury in the past year?: No Have you had two or more falls in the year?: No Fall Risk Assessment:: No falls in the year COVID-19 Screening Questions Have you had any new onset fever, chills, cough, congestion, sore throat, shortness of breath, muscle aches?: No SDOH Questions SDOH Questions In the past year have you been worried about losing your housing?: No In the past year have you or any family members you live with been unable to get any of the following when it was really needed? Check all that apply:: None Examination Category Sub-Category Detail Notes General Examination [...] BREASTS: no masses palpable b ilaterally MUSCULOSKELETAL: extremities unremark able, no clubbing, cyanosis or edema, Surgical scar right knee from recent knee replacement LYMPH NODES: no enlarged lymph no ebonie,spleen normal RECTAL EXAM: not examined PSYCH: alert, oriented ORAL CAVITY: normal, unremarkable
--- NOTE | ~2024-11-07 | XR_ITS ---
CLINICAL HISTORY: STANDING WITH OBLIQUE VIEW Five views lumbar spine Comparison: None provided Findings: Mild lumbar dextrocurvature, which may be partially positional. The usual lumbar lordosis is maintained. Vertebral body heights are maintained. 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 Calcific atherosclerosis. IMPRESSION: No acute findings. Multilevel degenerative changes. This document has been electronically signed by: Jamal Rob DO on 11/08/2024 09:38:04
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
== END 2024-11-07 13:55 | disposition home or self-care (01) ==
LOC: HO.XRAY 13:54
PROVIDERS: PCP Internal Medicine Medical Oncology; Visit Provider Chiropractor
DX: M54.50 Low back pain, unspecified (principal)
CPT/HCPCS: 72110

== ENCOUNTER → 2024-11-07 14:10 | Outpatient (BNV) | payer MEDICARE, BC, SELFPAY | PROVIDERS: PCP Internal Medicine Medical Oncology; Visit Provider Radiology Diagnostic Radiology | DX: M51.369 Other intervertebral disc degeneration, lumbar region without mention of lumbar back pain or lower extremity pain (principal) | CPT/HCPCS: 72110 ==

== ENCOUNTER 2024-12-06 08:51 | Outpatient (REF) | payer MEDICARE, BC, SELFPAY ==
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
--- OUTSIDE RECORDS SUMMARY | 2023-11-09 10:30 | XMS_ITS ---
Author Organization Shimon Cerna III, MD Address [address] [place] [address] [place] [phone] Care Team Providers Care Tentering Machine Off Bearer Name Role Phone Dr. Shimon Cerna III Primary Care Provider Allergies Allergen (clinical drug ingredient) Drug/Non Drug Allergy documented on EMR Reaction Allergy Type Onset Date Status No Known Drug Allergy Unknown Drug Allergy Active Reason For Referral Reason Consult and Treat Left Knee Pain Diagnosis 1 Left knee pain (M25. 562) Referral Organization Shimon Cerna III, MD Referring Provider First Name Shimon Referring Provider Last Name Nehemiah Referring Provider Speciality Internal M edicine Referred Provider [facility] Referred Provider Specialty Orthopedic [facility] General Notes Idalia Coto 11/28 03:14:20 PM > Faxed referral and progress note Referral Priority Routine Referral Appointment Date 02/24/2024 REASON FOR VISIT Benign prostatic hypertrophy, Eczema, Hypertension, Osteoarthritis right knee, Hyperlipidemia, Vision loss left eye Medications Medication SIG (Take, Route, Frequency, Duration) Notes Start Date End Date Status PreserVision AREDS - as directed Orally Active Simvastatin 20 MG TAKE 1 TABLET BY TRAVIS TH EVERY DAY IN THE EVENING Active Aspirin Adult Low Dose 81 MG 1 tablet Or ally Once a day Active Terbinafine HCl 1 % APPLY TOPICALLY TO T HE AFFECTED AREA THREE TIMES DAILY FOR 21 DAYS External Active Betamethasone Dipropionate 0.05 % APPLY TOPICALLY TO THE AFFECTED AREA TWICE DAILY NEEDED External Active Lisinopril 20 MG TAKE 1 TABLET BY TRAVIS TH EVERY DAY Active Social History Tobacco Use: Social History Observation Description Date Details (start date - stop date) Former Smoker NA - NA Tobacco Use/Smoking Question Answer Notes Patient is a former smoker How long has it been since you last smoked? > 10 years Additional Findings: Tobacco Non-User Ex-cigaret te smoker Vital Signs Temperature 98.6 degrees Fahrenheit 11/09/19 24 Blood pressure systolic 122 mm Hg 11/09/19 24 Blood pressure diastolic 67 mm Hg 024 Heart Rate 82 /min 11/09/2023 Height 68 in 11/09/2023 Weight 150 lbs 11/09/2023 BMI 22.8 kg/m2 11/09/2023 Encounters Encounter Location Date Provider Diagnosis Shimon Cerna III, MD [address] [place] [address] [place] [address] 11/09/2023 Shimon Cerna Essential hypertensi on I10 ; Mixed hyperlipidemia E78.2 ; Benign prostatic hyperplasia, unspecified whether lower urinary tract symptoms present N40.0 and Localized osteoarthritis of right knee M17.11 Assessments Encounter Date Diagnosis (ICD Code) Assessment Notes Treat ment Notes Treatment Clinical Notes 11/09/2023 Essential hypertension (ICD-10 - I10) His blood pressure is controlled at 122/67 and no change in his regimen was needed. 11/09/2023 Mixed hyperlipidemia (ICD-10 - E78.2) His lipids are in near target range with a total cholesterol of 179. No change in his regimen as needed. 11/09/2023 Benign prostatic hyperplasia, unspecified whether lower urinary tract symptoms present (ICD-10 - N40.0) He rises from sleep once or twice a night. We discussed lifestyle modifications he could make to reduce nocturia. 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 He has a recurrent effusion in his left knee which limits ambulation and range of motion. No sign of infection is present. He was referred back to urgent care [facility]. Plan Of Treatment Medication Medication Name Sig Start Date Stop Date Notes PreserVision AREDS - as directed Orally Simvastatin 20 MG TAKE 1 TABLET BY TRAVIS TH EVERY DAY IN THE EVENING Aspirin Adult Low Dose 81 MG 1 tablet Orally Once a day Terbinafine HCl 1 % APPLY TOPICALLY TO T HE AFFECTED AREA THREE TIMES DAILY FOR 21 DAYS External Betamethasone Dipropionate 0 .05 % APPLY TOPICALLY TO THE AFFECTED AREA TWICE DAILY NEEDED External Lisinopril 20 MG TAKE 1 TABLET BY TRAVIS TH EVERY DAY Pending Test Test Name Order Date PROFILE, FASTING (COMPREHENSIVE METABOLI C) 11/09/2023 PSA, TOTAL 11/09/2023 CBC WITH AUTO DIFF 11/09/2023 Lipid Panel 11/09/2023 Referrals Referral Date Details 11/09/2023 11/09/2023, Consult and Treat Left Knee Pain, [facility] Next Appt Details Follow Up: 4 Months, Reason: OV Provider Name:Shimon Cerna , 12/12/2024 02:00:00 PM, [address] [place] [address] [address], [facility] [place] [place], [address], Provider Name:Shimon Cerna , 08/12/2025 02:30:00 PM, [address] [place] [address] [address], [place], [address], Progress Notes * Wayne GARCÍADOB: [birth year] (78 yo M)Acc No.[id number]:11/09/2023 Progress Notes Patient: Wayne Alcantar Provider: Louisa Cerna MD :1945 A ge:78 Y S ex:Male Date:11/09/2023 Address:[address] [place] [address], [id number] Subjective: * Chief Complaints: * B enign prostatic hypertrophyEczemaHypertensionOsteoarthritis right kneeHyperlipidemiaVision loss left eye * HPI: C OVID-19 Screening: He returns for medical management with his . He has no new complaints. The pain in his left knee is getting worse. He is limping and this causes both hips to be painful. Over the last month he has had some intermittent left sciatica.Upon examination there was no effusion in the left knee. He has had this aspirated in the past with relief. He was referred to the urgent walk-ins clinic at [facility]. He has been there before as a patient. A follow-up was arranged. Questions H ave you experienced fever, chills, [...] N o * ROS: G eneral/Constitutional: pain L eft knee and both hips, otherwise only normal aches and pains. C hills d enies. F atigue a dmits. F ever d enies. ? E NT: Decreased hearing m ild. R espiratory: Cough d enies. C ardiovascular: [...] have been noted. G enitourinary: Frequent urination o nce a night. M usculoskeletal: Muscle aches d enies. P ainful joints R ight knee.?Sciatica d enies. W eakness d enies. S [...] 64 yrs, Congestive heart failure, diagnosed with HTN, CVD. M other: 85 yrs, Coronary artery disease, [...] x-cigarette smoker Lo giles was born and [place], [place]. He is a former smoker. 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 He has a daughter Nohemy. He has been to [place] for 48 years. * Medications: T akingPreserVision AREDS - Capsule as directed Orally Simvastatin 20 MG Tablet TAKE 1 TABLET BY MOUTH EVERY DAY IN THE EVENING Aspirin Adult Low Dose 81 MG Tablet Delayed Release 1 tablet Orally Once a dayBetamethasone Dipropionate 0.05 % Cream APPLY TOPICALLY TO THE AFFECTED AREA TWICE DAILY NEEDED External Terbinafine HCl 1 % Cream APPLY TOPICALLY TO THE AFFECTED AREA THREE TIMES DAILY FOR 21 DAYS External Lisinopril 20 MG Tablet TAKE 1 TABLET BY MOUTH EVERY DAY Medication List reviewed and reconciled with the patientTaking PreserVision AREDS - Capsule as directed Orally Taking Simvastatin 20 MG Tablet TAKE 1 TABLET BY MOUTH EVERY DAY IN THE EVENING Taking Aspirin Adult Low Dose 81 MG Tablet Delayed Release 1 tablet Orally Once a dayTaking Betamethasone Dipropionate 0.05 % Cream APPLY TOPICALLY TO THE AFFECTED AREA TWICE DAILY NEEDED External Taking Terbinafine HCl 1 % Cream APPLY TOPICALLY TO THE AFFECTED AREA THREE TIMES DAILY FOR 21 DAYS External Taking Lisinopril 20 MG Tablet TAKE 1 TABLET BY MOUTH EVERY DAY Medication List reviewed and reconciled with the patient * Allergies: N o Known Drug Allergyno[Allergies Verified] Objective: * Vitals: H t: 68, Wt:150, BMI:22.8, BP:122/67, HR:82, Temp:98.6, Wt-k.04. * P ast Orders: Lab:Lipid Panel * Order Date 11/03/2023 08/25/2023 04/27/2023 Triglycerides 86 (Ref Range: <150 mg/dL) 52 (Ref Range: <150 mg/dL) 77 (Ref Range: <150 mg/dL) Cholesterol 179 (Ref Range: <200 mg/dL) 160 (Ref Range: <200 mg/dL) 184 (Ref Range: <200 mg/dL) LDL Cholesterol Calculated 111 H (Ref Range: <100 mg/dL) 91 (Ref Range: <100 mg/dL) 119 H (Ref Range: <100 mg/dL) HDL Cholesterol 51 (Ref Range: >40 mg/dL) 59 (Ref Range: >40 mg/dL) 50 (Ref Range: >40 mg/dL) * Lab:Comprehensive [place]. Rade l Fast * Order Date 11/03/2023 08/25/2023 04/27/2023 Sodium 140 (Ref Range: 135-145 mmol/L) 140 (Ref Range: 135-145 mmol/L) 139 (Ref Range: 135-145 mmol/L) Bilirubin Total 0.8 (Ref Range: 0.0-1.0 mg/dL) 0.7 (Ref Range: 0.0-1.0 mg/dL) 0.6 (Ref Range: 0.0-1.0 mg/dL) Aspartate Amino Transferase 18 (Ref Range: 5-37 U/L) 23 (Ref Range: 5-37 U/L) 20 (Ref Range: 5-37 U/L) Alanine Aminotransferase 17 (Ref Range: 0-40 U/L) 25 (Ref Range: 0-40 U/L) 21 (Ref Range: 0-40 U/L) Total Protein 6.8 (Ref Range: 6.5-8.0 g/dL) 6.6 (Ref Range: 6.5-8.0 g/dL) 6.7 (Ref Range: 6.5-8.0 g/dL) Albumin Level 4.4 (Ref Range: 3.5-5.0 g/dL) 4.3 (Ref Range: 3.5-5.0 g/dL) 4.4 (Ref Range: 3.5-5.0 g/dL) Alkaline Phosphatase 46 (Ref Range: 39-117 U/L) 41 (Ref Range: 39-117 U/L) 41 (Ref Range: 39-117 U/L) Potassium 4.4 (Ref Range: 3.3-5.1 mmol/L) 4.8 (Ref Range: 3.3-5.1 mmol/L) 4.6 (Ref Range: 3.3-5.1 mmol/L) Chloride 105 (Ref Range: 96-108 mmol/L) 104 (Ref Range: 96-108 mmol/L) 104 (Ref Range: 96-108 mmol/L) Carbon Dioxide 25 (Ref Range: 22-29 mmol/L) 28 (Ref Range: 22-29 mmol/L) 29 (Ref Range: 22-29 mmol/L) Anion Gap 14 (Ref Range: 12-20) 13 (Ref Range: 12-20) 11 L (Ref Range: 12-20) Blood Urea Nitrogen 17 H (Ref Range: 9-16 mg/dL) 14 (Ref Range: 9-16 mg/dL) 17 H (Ref Range: 9-16 mg/dL) Creatinine 0.88 (Ref Range: 0.5-1.4 mg/dL) 0.85 (Ref Range: 0.5-1.4 mg/dL) 0.94 (Ref Range: 0.5-1.4 mg/dL) Estimated Glomerular Filt Rate > 60 > 60 > 60 Glucose Fasting 104 H (Ref Range: 60-99 mg/dL) 102 H (Ref Range: 60-99 mg/dL) 105 H (Ref Range: 60-99 mg/dL) Calcium 9.7 (Ref Range: 8.4-10.2 mg/dL) 9.2 (Ref Range: 8.4-10.2 mg/dL) 9.3 (Ref Range: 8.4-10.2 mg/dL) * Lab:Complete Blood Count Aut o Diff * Order Date 11/03/2023 08/25/2023 04/27/2023 White Blood Count 6.6 (Ref Range: 4.8-10.8 X10*3/uL) 8.6 (Ref Range: 4.8-10.8 X10*3/uL) 5.9 (Ref Range: 4.8-10.8 X10*3/uL) Red Blood Count 4.79 (Ref Range: 4.60-5.80 X10*6/uL) 4.82 (Ref Range: 4.60-5.80 X10*6/uL) 4.84 (Ref Range: 4.60-5.80 X10*6/uL) Hemoglobin 14.7 (Ref Range: 14.0-18.0 g/dl) 15.1 (Ref Range: 14.0-18.0 g/dl) 14.9 (Ref Range: 14.0-18.0 g/dl) Hematocrit 42.4 (Ref Range: 42.0-52.0 %) 43.1 (Ref Range: 42.0-52.0 %) 42.4 (Ref Range: 42.0-52.0 %) Mean Corpuscular Volume 88.5 (Ref Range: 80.0-98.0 fL) 89.4 (Ref Range: 80.0-98.0 fL) 87.6 (Ref Range: 80.0-98.0 fL) Mean Corpuscular Hemoglobin 30.7 (Ref Range: 27.0-33.0 pg) 31.3 (Ref Range: 27.0-33.0 pg) 30.8 (Ref Range: 27.0-33.0 pg) Mean Corpuscular HGB Conc 34.7 (Ref Range: 31.0-36.0 g/dl) 35.0 (Ref Range: 31.0-36.0 g/dl) 35.1 (Ref Range: 31.0-36.0 g/dl) Red Cell Distribution Width 12.8 (Ref Range: 11.0-16.0 %) 13.0 (Ref Range: 11.0-16.0 %) 12.9 (Ref Range: 11.0-16.0 %) Platelet Count 158 L (Ref Range: 160-400 X10*3/uL) 142 L (Ref Range: 160-400 X10*3/uL) 155 L (Ref Range: 160-400 X10*3/uL) Mean Platelet Volume 9.2 L (Ref Range: 9.4-12.4 fL) 9.3 L (Ref Range: 9.4-12.4 fL) 9.2 L (Ref Range: 9.4-12.4 fL) Neutrophils Percent Auto 70.0 (Ref Range: 45-73 %) 76.5 H (Ref Range: 45-73 %) 67.8 (Ref Range: 45-73 %) Imm Gran Pct Auto 0.5 H (Ref Range: 0.0-0.4 %) 0.5 H (Ref Range: 0.0-0.4 %) 0.3 (Ref Range: 0.0-0.4 %) Lymphocytes Percent Auto 16.0 L (Ref Range: 20-40 %) 11.0 L (Ref Range: 20-40 %) 16.8 L (Ref Range: 20-40 %) Monocytes Percent Auto 9.7 (Ref Range: 2-11 %) 8.3 (Ref Range: 2-11 %) 10.4 (Ref Range: 2-11 %) Eosinophils Percent Auto 3.2 (Ref Range: 0-4 %) 2.9 (Ref Range: 0-4 %) 4.0 (Ref Range: 0-4 %) Basophils Percent Auto 0.6 (Ref Range: 0-2 %) 0.8 (Ref Range: 0-2 %) 0.7 (Ref Range: 0-2 %) NRBC Pct Auto 0.0 (Ref Range: 0.0-0.2 /100WBC) 0.0 (Ref Range: 0.0-0.2 /100WBC) 0.0 (Ref Range: 0.0-0.2 /100WBC) Neutrophils Absolute Auto 4.6 (Ref Range: 2.0-8.3 x10*3/uL) 6.6 (Ref Range: 2.0-8.3 x10*3/uL) 4.0 (Ref Range: 2.0-8.3 x10*3/uL) Imm Gran Abs Auto 0.03 (Ref Range: 0.00-0.03 X10*3/uL) 0.04 H (Ref Range: 0.00-0.03 X10*3/uL) 0.02 (Ref Range: 0.00-0.03 X10*3/uL) Lymphocytes Absolute Auto 1.1 L (Ref Range: 1.2-4.9 X10*3/uL) 1.0 L (Ref Range: 1.2-4.9 X10*3/uL) 1.0 L (Ref Range: 1.2-4.9 X10*3/uL) Monocytes Absolute Auto 0.6 (Ref Range: 0.1-1.2 X10*3/uL) 0.7 (Ref Range: 0.1-1.2 X10*3/uL) 0.6 (Ref Range: 0.1-1.2 X10*3/uL) Eosinophils Absolute Auto 0.2 (Ref Range: 0.0-0.4 X10*3/uL) 0.3 (Ref Range: 0.0-0.4 X10*3/uL) 0.2 (Ref Range: 0.0-0.4 X10*3/uL) Basophils Absolute Auto 0.0 (Ref Range: 0.0-0.2 X10*3/uL) 0.1 (Ref Range: 0.0-0.2 X10*3/uL) 0.0 (Ref Range: 0.0-0.2 X10*3/uL) NRBC Abs Auto 0.000 (Ref Range: 0.0-0.012 X10*3/uL) 0.000 (Ref Range: 0.0-0.012 X10*3/uL) 0.000 (Ref Range: 0.0-0.012 X10*3/uL) * Lab:Prostate Specific Antige n * Order Date 11/03/2023 12/29/2022 04/21/2022 Prostate Specific Antigen 2.41 (Ref Range: <0.05-4.0 ng/mL) 2.12 (Ref Range: <0.05-4.0 ng/mL) 1.79 (Ref Range: <0.05-4.0 ng/mL) * Examination: G eneral Examination: GENERAL APPEARANCE: p leasant, well nourished, well developed, in no acute distress, calm and relaxed , elderly man. HEAD: a traumatic, normocephalic. EYES: e roc, perrla, anicteric, conjugate. EARS: n ormal. NOSE: s eptum intact. [...] normal, no ascites, no organomegaly, no mass, Small left inguinal hernia. RECTAL EXAM: n ot examined. MUSCULOSKELETAL: R placido of motion left knee limited by a significant joint e ffusion. Popliteal fossa normal, no erythema, no crepitus. PERIPHERAL PULSES: n ormal. NEUROLOGIC: a lert and oriented, cranial nerves 2-12 grossly intact, deep tendon reflexes 2+ symmetrical, motor strength normal upper and lower extremities, sensory exam intact. PSYCH: a lert, oriented. Assessment: * Assessment: 1. E ssential hypertension - I10 (Primary), His blood pressure is controlled at 122/67 and no change in his regimen was needed. 2 . M ixed hyperlipidemia - E78.2, His lipids are in near target range with a total cholesterol of 179. No change in his regimen as needed. 3 . B enign prostatic hyperplasia, unspecified whether lower urinary tract symptoms present - N40.0, He rises from sleep once or twice a night. We discussed lifestyle modifications he could make to reduce nocturia. 4 . 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 He has a recurrent effusion in his left knee which limits ambulation and range of motion. No sign of infection is present. He was referred back to urgent care [facility]. Plan: * Treatment: 2. M ixed hyperlipidemia L AB: PROFILE, FASTING (COMPREHENSIVE METABOLIC) L AB: PSA, TOTAL L AB: CBC WITH AUTO DIFF L AB: Lipid Panel 3. B enign prostatic hyperplasia, unspecified whether lower urinary tract symptoms present L AB: PROFILE, FASTING (COMPREHENSIVE METABOLIC) L AB: PSA, TOTAL L AB: CBC WITH AUTO DIFF L AB: Lipid Panel 4. O thers Continue Lisinopril Tablet, 20 MG, TAKE 1 TABLET BY MOUTH EVERY DAY; C ontinue Simvastatin Tablet, 20 MG, TAKE 1 TABLET BY MOUTH EVERY DAY IN THE EVENING; C ontinue Betamethasone Dipropionate Cream, 0.05 %, APPLY TOPICALLY TO THE AFFECTED AREA TWICE DAILY NEEDED, External. ? Referral To:[facility] Reason:Consult and Treat Left Knee Pain * Procedure Codes: * Preventive Medicine: Counseling: S moking/Tobacco Use Patient counseled on the dangers of tobacco use and urged to quit. 0 11/09/2023 * Follow Up: 4 Months (Reason: OV) * Images: * Sign off status: Completed true * Provider: Louisa Cerna MD Date: 0 11/09/2023 Generated for Bei haritha/Lilliam/eTchagosmmary alice on: 1 09:21 AM EDT History and Physical Notes * HPI (History of Present Illness) Category Sub-Category Detail Notes COVID-19 Screening Questions Have you had any new onset fever, chills, cough, congestion, sore throat, shortness of breath, muscle aches?: No Have you been exposed to the virus withi n the last 10 days?: No Have you travelled internationally in last 10 days?: No Have you been exposed to COVID-19 in the past?: No Examination Category Sub-Category Detail Notes General Examination GENERAL APPEARANCE: pleasant , well nourished, well developed, in no acute distress, calm and relaxed , elderly man HEAD: atraumatic, normocep halic EYES: eomi, perrla, anicte kassi, conjugate EARS: normal NOSE: septum intact NECK/THYROID: no jugular venous di stention, no carotid bruit, thyroid normal HEART: no clicks, gallops, murmurs, or rubs, regular rhythm, S1, S2 normal, no s3, or vascular bruits LUNGS: clear to auscultatio n ABDOMEN: bowel sounds normal, no ascites, no organomegaly, no mass, Small left inguinal hernia NEUROLOGIC: alert and oriented, cranial nerves 2-12 grossly intact, deep tendon reflexes 2+ symmetrical, motor strength normal upper and lower extremities, sensory exam intact SKIN: no suspicious lesion s, anicteric PERIPHERAL PULSES: normal BREASTS: no masses palpable b ilaterally MUSCULOSKELETAL: Range of motion left knee limited by a significant joint effusion. Popliteal fossa normal, no erythema, no crepitus LYMPH NODES: no enlarged lymph no ebonie,spleen normal RECTAL EXAM: not examined PSYCH: alert, oriented ORAL CAVITY: normal, unremarkable Consultation Request Notes Referral Date Referring Provider Referred Provider Not heidi 11/09/2023 Shimon Cerna [facility] Consult and Treat Left Knee Pain
--- OUTSIDE RECORDS SUMMARY | 2024-03-14 10:30 | XMS_ITS ---
Author Organization Shimon Cerna III, MD Address [address] [place] [address] [place] [address] Care Team Providers Care Cattle Brander Name Role Phone Dr. Shimon Cerna III Primary Care Provider [phone] Allergies Allergen (clinical drug ingredient) Drug/Non Drug [...] Date Provider Diagnosis Shimon Cerna III, MD [address] [place] [address] [place], [place] [address] 03/14/2024 Shimon Cerna Essential hypertensi on I10 [...] He was referred back to urgent care [facility]. 03/14/2024 Mixed hyperlipidemia (ICD-10 - [...] OV, Annual Exam, Routine follow-up Provider Name:Shimon Cerna , 12/12/2024 02:00:00 PM, [address] [place] [address] [address] [place], [place], [address], Provider Name:Shimon Cerna , 08/12/2025 02:30:00 PM, [address] [place] [address] [address], [place], [phone], Progress Notes * Wayne GARCÍADOB: [birth year] (78 yo M)Acc No.[id number]:03/14/2024 Progress Notes Patient: Wayne CAMPOS Provider: Louisa Cerna MD :1945 A ge:78 Y S ex:Male Date:03/14/2024 Address:[address] [place], [place] [address], [id number] Subjective: * Chief Complaints: * O steoarthritis [...] ilateral cataract surgery 12/2019left hand ganglion cust ight knee surgery * Hospitalization/Major Diagno stic Procedure: N o history * Family History: F ather: 66 yrs, diagnosed with HTN, CVD. M other: 87 yrs, diagnosed with DM. C hildren: alive. S iblings: alive, diagnosed with Cancer. 2 sister(s) . [...] Findings: Tobacco Non-User E x-cigarette smoker H chan was born and [place], [place]. He is a former smoker. He [...] X10*3/uL) 0.000 (Ref Range: 0.0-0.012 X10*3/uL) * Lab:[facility] Jud[facility] * Collection Date 03/05/2024 11/03/2023 [...] He was referred back to urgent care [facility]. 3 . M ixed hyperlipidemia [...] Cerna MD Date: 0 03/14/2024 Generated for Bei ng/Sarahg/eTransmitting on: 1 09:22 AM EDT History and [...]
--- OUTSIDE RECORDS SUMMARY | 2024-08-08 10:30 | XMS_ITS ---
Author Organization Shimon Cerna III, MD Address [address] [place] [place] [address] Care Team Providers Care Venetian Blind Worker Name Role Phone Dr. Shimon Cerna III Primary Care Provider [phone] Allergies Allergen (clinical drug ingredient) Drug/Non Drug [...] TAKE 1 TABLET BY TRAVIS EVERY DAY Active Aspirin Adult Low Dose [...] Provider Diagnosis Shimon Cerna III, MD [address] [place] [address] [place] [address] 08/08/2024 Shimon Cerna Essential hypertensi on I10 [...] He was referred back to urgent care [facility]. 08/08/2024 Vision loss of left [...] Months, Reason: ov review labs Provider Name:Shimon Cerna , 12/12/2024 02:00:00 PM, [address] [place] [address] [address], [place], [address], Provider Name:Shimon Cerna , 08/12/2025 02:30:00 PM, [address] [place] [address] [address], [place], [address], Progress Notes * Wayne GARCÍADOB: [birth year] (78 yo M)Acc No.[id number]:08/08/2024 Progress Notes Patient: Wayne CAMPOS Provider: Louisa Cerna MD :1945 A ge:78 Y S ex:Male Date:08/08/2024 Address:[address] [place] [address] [place], [id number] Subjective: * Chief Complaints: * A nnual Exam * HPI: D epression Screening: .He returns to the office at the age of 78 for his annual visit. Comprehensive blood work was available was reviewed with him. No changes in his regimen was necessary today. On June 13, 2024 at the [facility] he had a left total knee [...] diagnosed with DM. C hildren: alive. S stacey: alive, diagnosed with Cancer. [...] N egative Lo giles was born and [place], [place]. He is a former smoker. He [...] 0.000 (Ref Range: 0.0-0.012 X10*3/uL) * Lab:[facility] Dev[facility] * Collection Date 08/01/2024 03/05/2024 11/03/2023 Collection [...] He was referred back to urgent care [facility]. 3 . V ision loss [...] MD Date: 0 08/08/2024 Generated for Freya mg/Lilliam/Marifer on: 09:21 AM EDT History and Physical Notes [...]
[2024-12-06 09:09] LABS: MANUAL DIFF FLAG NO
--- OUTSIDE RECORDS SUMMARY | 2024-12-06 09:22 | XMS_ITS | Patient Health Record ---
Author Organization Shimon Cerna III, MD Address [address] [place] [address] [place] [address] Care Team Providers Care Project Administrative Assistant Name Role Phone Dr. Shimon Cerna III [...] ff Reviewed date:03/06/2024 05:46:51 PM Interpretation: Performing Lab:[facility], [address] [place] [phone] Notes/Report: White Blood Count 11.1 4.8-10.8 X10*3/uL [...] NRBC Abs Auto 0.000 0.0-0.012 X10*3/uL Comprehensive [place]. Panel Fa st Reviewed date:03/06/2024 05:46:51 PM Interpretation: Performing Lab:[facility], [address] [place] [phone] Notes/Report: Sodium 139 135-145 mmol/L Potassium 4.4 [...] Panel Reviewed date:03/06/2024 05:46:51 PM Interpretation: Performing Lab:[address] [phone] Notes/Report: Triglycerides 88 <150 mg/dL Desirable Triglyceride: [...] Antigen Reviewed date:03/06/2024 05:46:51 PM Interpretation: Performing Lab:[address] [address] Notes/Report: Prostate Specific Antigen 2.47 <0.05-4.0 ng/mL PSA methodology: [place] Alinity i Chemiluminescent Microparticle Immunoassay (CMIA) Complete Blood Count Auto Di ff Reviewed date:08/01/2024 12:54:27 PM Interpretation: Performing Lab:[address] [address] Notes/Report: White Blood Count 6.2 4.8-10.8 X10*3/uL [...] NRBC Abs Auto 0.000 0.0-0.012 X10*3/uL Comprehensive [place]. Panel Fa st Reviewed date:08/01/2024 12:54:27 PM Interpretation: Performing Lab:[facility], [address] [place] [phone] Notes/Report: Sodium 139 135-145 mmol/L Potassium 4.4 [...] Panel Reviewed date:08/01/2024 12:54:27 PM Interpretation: Performing Lab:[address] [address] Notes/Report: Triglycerides 80 <150 mg/dL Desirable Triglyceride: [...] Antigen Reviewed date:08/01/2024 12:54:27 PM Interpretation: Performing Lab:[address] [address] Notes/Report: Prostate Specific Antigen 3.68 <0.05-4.0 ng/mL PSA methodology: [place] Alinity i Chemiluminescent Microparticle Immunoassay (CMIA) XR lumbar spine 4V min (Not yet reviewed by provider) Interpretation: Performing Lab: Notes/Report: [address] [address] XRay Report Signed Patient: Wayne Sevilla MR#: [id number] : 1945 Acct:[id number] Age/Sex: 79 / M ADM Date: 11/07/24 Loc: [facility] Attending Dr: Pro Thacker Ordering Physician: Pro Thacker Date of Service: 11/07/24 Procedure(s): XR lumbar spine 4V min Accession Number(s): [id number] cc: Shimon Cerna MD; Pro Thacker Reason for Exam: STANDING WITH OBLIQUE VIEW CLINICAL HISTORY: STANDING WITH OBLIQUE VIEW Five views lumbar spine Comparison: None provided Findings: Mild lumbar dextrocurvature, which may be partially positional. The usual lumbar lordosis is maintained. Vertebral body heights are maintained. 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 Calcific atherosclerosis. IMPRESSION: No acute findings. Multilevel degenerative changes. This document has been electronically signed by: Jamal Rob DO on 11/08/2024 09:38:04 Dictated By: Jamal Rob MD Signed By: <Electronically signed by Jamal Rob MD in [place]> 11/08/24937 DD/ 7 TD/TT: 11/08/24937 Telegraph Operator: [place] [id number] XRay Report Signed Patient: Wayne Sevilla MR#: [id number] : 1945 Acct:[id number] Age/Sex: 79 / M ADM Date: 11/07/24 Loc: [facility].XRAY Attending Dr: Pro Thacker Ordering Physician: Pro Thacker Date of Service: 11/07/24 Procedure(s): XR lum bar spine 4V min Accession Number(s): [id number] cc: Sihmon Cerna MD; Pro Thacker Reason for Exam: STANDING WITH OBLIQUE VIEW CLINICAL HISTORY: STANDING WITH OBLIQUE VIEW Five views lumbar spine Comparison: None provided Findings: Mild lumbar dextrocurvature, which may be partially positional. The usual lumbar lordosis is maintained. Vertebral body heigh ts are maintained. 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 Calcific atherosclerosis. IMPRESSION: No acute findings. Multilevel degenerative changes. This document has be en electronically signed by: Jamal Rob DO on 11/08/2024 09:38:04 Dictated By: Jamal Rob MD Signed By: <Electronically signed by Jamal Rob MD in [place]> 11/08/24937 DD/ 7 TD/TT: 11/08/24937 Telegraph Operator: Reason For Referral No Information Medications Medication SIG (Take, Route, Frequency, Duration) [...] Problem Status W/U Status Risk Notes Problem 7446220 Former smoker (Z87.891) Active confirmed He seems highly motivated not to smoke. We discussed a plan to prevent relapse in times of stress and illness. Problem 869127779 Mixed hyperlipidemia (E78.2) Active confirmed His lipids are in near target range with a total cholesterol of 179. No change in his regimen as needed. Problem 57412580 Essential hypertension (I10) Active confirmed His blood pressure is controlled at 115/72 and no change in his regimen was needed. Problem 938493859 Left inguinal hernia (K40.90) Active confirmed There is a small left inguinal hernia which is asymptomatic. Observation may be continued safely. Problem 54279192 Eczema, unspecified type (L30.9) Active confirmed With the use of topical steroids. His lesions have faded away. Problem Benign prostatic hypertrophy without outflow obstruction (906595776) Benign prostatic hyperplasia, unspecified whether lower urinary tract symptoms present (N40.0) Active confirmed He rises from sleep once or twice a night. We discussed lifestyle modifications he could make to reduce nocturia. Problem 47780761 Vision loss of left eye (H54.62) Active confirmed He reports that the vision in the right eye has now returned to normal. 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 He has a recurrent effusion in his left knee which limits ambulation and range of motion. No sign of infection is present. He was referred back to urgent care [facility]. Problem 54009454 Senile cataract of right eye, unspecified age-related [...] Date Provider Diagnosis Shimon Cerna III, MD [address] [place] [address] [address] [place] [phone] 03/14/2024 Shimon Cerna Essential hypertensi on I10 [...] Former smoker Z87.891 Shimon Cerna III, MD [address] [place] [address] [place] [phone] 08/08/2024 Shimon Cerna Essential hypertensi on I10 [...] He was referred back to urgent care [facility]. 08/08/2024 Essential hypertension (ICD-10 - [...] He was referred back to urgent care [facility]. 03/14/2024 Mixed hyperlipidemia (ICD-10 - E78.2) His lipids are in near target range with a total cholesterol of 179. No change in his regimen as needed. 08/08/2024 Vision loss of left eye (ICD-10 - H54.62) He reports that the vision in the right eye has now returned to normal. 03/14/2024 Vision loss of left eye (ICD-10 [...] Date PROFILE, FASTING (COMPREHENSIVE METABOLI C) 11/09/2023 PROFILE, FASTING (COMPREHENSIVE METABOLI C) 01/15/2019 PROFILE, FASTING (COMPREHENSIVE METABOLI C) 08/31/2023 PROFILE, FASTING (COMPREHENSIVE METABOLI C) 08/08/2024 PROFILE, FASTING (COMPREHENSIVE METABOLI C) 12/06/2019 PROFILE, FASTING (COMPREHENSIVE METABOLI C) 05/04/2023 PROFILE, FASTING (COMPREHENSIVE METABOLI C) 03/14/2024 PROFILE, FASTING (COMPREHENSIVE METABOLI C) 07/23/2019 LIPID PANEL 07/23/2019 LIPID PANEL 04/07/2020 LIPID PANEL 01/15/2019 LIPID PANEL 12/06/2019 PSA, TOTAL 03/14/2024 PSA, TOTAL 07/23/2019 PSA, TOTAL 11/09/2023 PSA, TOTAL 02/23/2021 PSA, TOTAL 01/15/2019 PSA, TOTAL 08/31/2023 PSA, TOTAL 08/08/2024 CBC w DIFF 08/08/2024 CBC w DIFF 05/04/2023 CBC w DIFF 12/06/2019 CBC w DIFF 07/23/2019 CBC w DIFF 01/15/2019 XR KNEE LT 4 VIEWS 11/23/2021 CBC WITH AUTO DIFF 03/14/2024 CBC WITH AUTO DIFF 11/09/2023 CBC WITH AUTO DIFF 08/31/2023 Lipid Panel 08/08/2024 Lipid Panel 05/04/2023 Lipid Panel 03/14/2024 Lipid Panel 11/09/2023 Lipid Panel 08/31/2023 XR lumbar spine 4V min 11/08/2024 Next Appt Details Provider Name:Shimon Cerna , 12/12/2024 02:00:00 PM, [address] [place] [address] [address], [place], [phone], Provider Name:Shimon Cerna , 08/12/2025 02:30:00 PM, [address] [place] [address] [address], [place], [phone], Insurance Providers Payer Name Payer Address Payer Phone Subscriber Number Group Number Insured Name Patient Relationship to Insured Coverage Start Date Coverage End Date MEDICARE NGS [address] [place] [address] [id number] Wayne Sevilla Self - patient is the insured [facility] [address] [place], [place] [id number] [phone] [id number] Wayne Sevilla Self - patient is the [...]
[2024-12-06 09:33] LABS: Hematocrit 44.0 % (42.0-52.0); Hemoglobin 15.1 g/dl (14.0-18.0); Imm Gran Abs Auto 0.04 X10*3/uL (0.00-0.03); Imm Gran Pct Auto 0.6 % (0.0-0.4); Lymphocytes Absolute Auto 1.0 X10*3/uL (1.2-4.9); Mean Corpuscular HGB Conc 34.3 g/dl (31.0-36.0); Mean Corpuscular Hemoglobin 30.1 pg (27.0-33.0); Mean Corpuscular Volume 87.8 fL (80.0-98.0); NRBC Abs Auto 0.000 X10*3/uL (0.0-0.012); NRBC Pct Auto 0.0 /100WBC (0.0-0.2); Platelet Count 171 X10*3/uL (160-400); Red Blood Count 5.01 X10*6/uL (4.60-5.80); White Blood Count 6.5 X10*3/uL (4.8-10.8)
[2024-12-06 10:00] LABS: Alanine Aminotransferase 21 U/L (0-40); Albumin Level 4.9 g/dL (3.5-5.0); Alkaline Phosphatase 46 U/L (39-117); Anion Gap 11 (12-20); Aspartate Amino Transferase 23 U/L (5-37); Blood Urea Nitrogen 15 mg/dL (9-16); Calcium 9.4 mg/dL (8.4-10.2); Carbon Dioxide 29 mmol/L (22-29); Chloride 105 mmol/L (96-108); Cholesterol 175 mg/dL (<200); Estimated Glomerular Filt Rate > 60; HDL Cholesterol 54 mg/dL (>40); Potassium 4.4 mmol/L (3.3-5.1); Sodium 141 mmol/L (135-145); Total Protein 7.0 g/dL (6.5-8.0); Triglycerides 69 mg/dL (<150)
[2024-12-06 10:21] LABS: Prostate Specific Antigen 3.49 ng/mL (<0.05-4.0)
== END 2024-12-06 08:52 | disposition home or self-care (01) ==
LOC: HO.LAB 08:51
PROVIDERS: PCP Internal Medicine Medical Oncology; Visit Provider Internal Medicine Medical Oncology
DX: N40.0 Benign prostatic hyperplasia without lower urinary tract symptoms (principal); E78.2 Mixed hyperlipidemia; I10 Essential (primary) hypertension; Z12.5 Encounter for screening for malignant neoplasm of prostate
CPT/HCPCS: 36415; 80053; 80061; 84153; 85025